=== PATIENT | male | born 1945 | race Caucasian/White ===

== ENCOUNTER 2023-03-01 12:00 | Inpatient (IN) ==
[2023-03-01] MEDS: Standard Conc; 4 MG in 250 mL for HYPOTENSION IV SCH ×3 (12:07→22:27)
[2023-03-01] MEDS ORDERED: NOREPINEPHRINE/D5W 4 MG/250 ML IV ONE (12:12)
[2023-03-01] MEDS ORDERED: fentaNYL citrate PF 100 MCG/2 ML VIAL ONE ×2 (12:24→12:31)
[2023-03-01] MEDS ORDERED: niCARdipine HCL INJ 2.5 MG/ML 10 ML AMP ONE (12:24)
[2023-03-01] MEDS ORDERED: HEPARIN (PORCINE) 1000 UNIT/ML 10 ML (CATH LAB USE ONLY) ONE (12:24)
[2023-03-01] MEDS ORDERED: MIDAZOLAM HCL 1 MG/ML 2ML VIAL ONE (12:24)
[2023-03-01] MEDS ORDERED: NITROGLYCERIN/D5W 100MCG/ML 20ML SYR ONE (12:25)
[2023-03-01] MEDS ORDERED: fentaNYL citrate PF 100 MCG/2 ML VIAL IV ONE (12:25)
[2023-03-01 12:29] LABS: iSTAT Creatinine 1.1 mg/dl (0.6-1.3); iSTAT Hemoglobin 16.3 g/dl (14.0-18.0); iSTAT Ionized Calcium 1.14 mmol/l (1.12-1.32); iSTAT Potassium 4.4 mmol/L (3.3-5.0)
[2023-03-01 12:58] LABS: Basophils # (auto) 0.09 K/uL (0.00-0.20); Basophils % (auto) 0.6 %; Eosinophils # (auto) 0.26 K/uL (0.00-0.50); Eosinophils % (auto) 1.8 %; Hematocrit (blood only) 48.6 % (42.0-52.0); Hemoglobin 15.3 g/dl (14.0-18.0); Immature Granulocytes # (auto) 0.53 K/uL (0.01-0.20); Immature Granulocytes % (auto) 3.6 %; Lymphocytes # (auto) 3.33 K/uL (1.20-3.40); Lymphocytes % (auto) 22.6 %; Mean Corpuscular Hemoglobin 29.8 pg (25.0-34.0); Mean Corpuscular Hgb Conc 31.5 g/dL (32.0-36.0); Mean Corpuscular Volume 94.6 fL (80.0-100.0); Mean Platelet Volume 10.6 fL (9.4-12.4); Monocytes # (auto) 0.75 K/uL (0.11-0.59); Monocytes % (auto) 5.1 %; Neutrophils % (auto) 66.3 %; Platelet Count 281 K/uL (130-400); RDW Coefficient of Variation 13.5 % (11.5-14.5); RDW Standard Deviation 46.9 fL (36.4-46.3); Red Blood Count 5.14 M/uL (4.70-6.10); White Blood Count 14.76 K/ul (4.8-10.8)
[2023-03-01] MEDS ORDERED: EPINEPHrine INJ 1 MG/ML AMP ONE ×2 (12:59→13:01)
[2023-03-01] MEDS ORDERED: Standard Conc; 4mg in 250mL IV SCH (13:00)
--- NOTE | 2023-03-01 13:03 | Emergency Department Note ---
Impression & Plan Cardiac arrest ED Provider Note HISTORY OF PRESENT ILLNESS: Patient is a 77-year-old male presenting as a postarrest. Patient reportedly was out shoveling snow for about 10 minutes when he came into the house and was talking to his and reports that he slumped over. She tried to sternal rub him and he was not responding so she called 911. Police arrived within 8 minutes of her call and gave the patient a shock as advised by their AED. On EMS arrival, the patient was noted to have a STEMI on their initial EKG. He required 2 doses of epi, 300 mg of IV amiodarone and additional shock prehospital. He was intubated without any medications. He reportedly continued to go into intermittent runs of V. tach. Patient has a history of diabetes. On my discussion with , she reports that the patient has been doing well recently. No complaints of chest pain prior to him slumping over. EMS has had ROSC for 15 minutes prior to arrival in the ER. ROS: as above PHYSICAL EXAM: Constitutional: Patient appears in no acute distress. HENT: Head: Normocephalic and atraumatic. Eyes: EOMI, PERRL Mouth/Throat: Mucous membranes moist. Neck: Trachea midline. Neck supple. Cardiovascular: RRR, No murmurs, rubs or gallops. Intact distal pulses. Pulmonary/Chest: ET tube in place. Patient is being bagged with bag valve mask. Saturations of 98%. Intact lung sounds bilaterally. Abdominal: Abdomen soft, no tenderness, rebound or guarding. Musculoskeletal: No edema, tenderness or deformity noted. Skin: Warm and dry. Neurological: Nonresponsive. MDM: - Vitals signs showed hypotension. - History obtained via EMS and patient's . Patient presents with post cardiac arrest. Patient was shoveling snow when he came inside and apparently slumped over per . He was delivered 2 shocks prehospital, 2 mg of IV epinephrine and 300 mg of IV amiodarone for his intermittent V. tach. He was noted to have a STEMI prehospital. EMS has had ROSC for 15 minutes - Chronic conditions affecting care: Type 2 diabetes - Differential diagnoses include, but are not limited to: ACS; intracranial hemorrhage; pneumothorax; dysrhythmia - Order placed for continuous cardiac monitoring. At this time, monitor showed rate of 72 bpm with normal sinus rhythm, per my interpretation. - External medical records reviewed. Patient was shocked twice, once by police department and once by EMS. He was given a total of 2 of epinephrine, 300 mg of amiodarone and was intubated. EMS has had ROSC for 15 minutes prior to arrival in the ER. - EKG interpreted by myself showed atrial fibrillation. Rate 79 bpm. Noted to have PVCs. QTc 362. - Patient was alerted as a code chill given his ROSC after cardiac arrest. - On arrival to the ER, the patient is being ventilated with [id number]. Unable to get a noninvasive blood pressure via automatic or manual detection. Patient was started on IV epinephrine for pressure support. - I initially placed a left femoral arterial line under ultrasound guidance. However, no tracing was able to be picked up on this line. The line was pulled and pressure was held for 20 minutes. I inserted a arterial line into the left radial artery with good waveform on the monitor. - Consulted arson investigator, Dr. Coffey, given patient's prehospital STEMI. He came and evaluated the patient and will take to the Golf Cart Mechanic. - Discussed case with [facility] hospitalist for admission post Golf Cart Mechanic - Discussed case with Dr. Gomez, food analyst, for admission to ICU post chemical lab technician. - Patient was transported to the Golf Cart Mechanic with an epi drip running for further assessment. Plan for admission to the ICU under the hospitalist service post cath. PROCEDURE: Arterial line. Indication: Frequent BP chest; IV pressor use Catheter type: Arrow Location: Left femoral (initially then removed); left radial Emergent consent implied, given patient's critically ill status. At this time, the risks of the procedure are less than the risks of NOT performing the procedure. A time out was taken and the correct patient and site identified. The patient's skin was prepped in the standard fashion with chlorhexidine and full sterile drapes applied. The proper landmarks were identified with ultrasound, and the needle was inserted through the skin in the standard fashion. The needle was carefully advanced into blood vessel lumen under ultrasound guidance. The guidewire was placed uneventfully. The catheter was placed. It was sutured into position. There is initially good blood return from the line. However, when nursing attach the left femoral arterial line to there is set up there was no waveform noted and blood could not be drawn from the line anymore. The left femoral arterial line was withdrawn and pressure was held on the site for 20 minutes. A second arrow catheter was placed in the left radial artery successfully with good blood draw and good waveform on the monitor. The patient tolerated the procedure well. I have personally spent 43 minutes of critical care time in the direct management of this patient. This includes bedside care, interpretation of diagnostic studies, and testing, discussion with consultants, patient, and family members, and other required patient management activities. This 43 minutes is in excess of all separately billable procedures. ASSESSMENT AND PLAN: Diagnosis: Cardiac arrest Plan: To Golf Cart Mechanic Past Med/Surg History Medical History (Updated 03/01/23 @ 13:03 by Olimpia Bazan MD) Hypercholesterolemia Diabetes mellitus Family History (Updated 11/19/20 @ 08:27 by Maddison Tierney RN) Father Cancer Mother Cerebral hemorrhage Social History (Updated 11/19/20 @ 08:32 by Maddison Tierney RN) Smoking Status: Unknown if ever smoked Hx Alcohol Use: Yes Alcohol type: beer Alcohol Intake Frequency Comment: 1 beer daily Hx Substance Use: No Preferred Language: Mexican Communication Ability: Effective Visual Impairment: Limited Hearing Ability: Hard of Hearing Fiber Optic Central Office Installer Required: No Beliefs That Will Affect Care: None marital status: Current Living Situation: Spouse current occupational status: retired How many Children do You have: 2 How many Children do You have Comment: 1 daughter local. Family able to assist with care as needed. Feels Safe at Home: Yes Diet: diabetic Diet Comment: stated trying to watch sugar intake, newly dx diabetic during the past year weight has: remained stable Physical Activity Frequency: 5-6 Times per Week Physical Activity Frequency Comment: walks daily about 1 mile or so Seatbelt Use: always Do you think of yourself as: straight/heterosexual Gender Identity: Male Allergies Allergies Allergy/AdvReac Type Severity Reaction Status Date / Time No Known Allergies Allergy Verified 12/18/20 10:29 Home Meds Home Medications Medication Instructions Recorded Confirmed metformin 500 mg tablet 1,500 mg PO DAILY 11/19/20 12/18/20 atorvastatin 10 mg tablet 10 mg PO DAILY 11/27/20 12/18/20 Results & Data (ED) Vital Signs Vital Signs - 24 hr 03/01/23 12:04 03/01/23 12:05 03/01/23 12:07 Pulse Rate 77 71 77 Pulse Rate from SpO2 Sensor 80 Respiratory Rate 25 H 22 Blood Pressure 113/86 Blood Pressure Mean 95 Pulse Oximetry 99 96 Oxygen Delivery Method Mechanical Vent Sepsis Recent Fever Within 48 Hours No Sepsis New/Unexplained Change in Mental Status No Sepsis Action Taken by Nursing No Action Required Arterial Pulse Rate End-Tidal CO2 03/01/23 12:10 03/01/23 12:11 03/01/23 12:11 Pulse Rate 78 73 Pulse Rate from SpO2 Sensor 77 Respiratory Rate 23 21 Blood Pressure 113/86 Blood Pressure Mean 98 Pulse Oximetry 97 Oxygen Delivery Method Mechanical Vent Sepsis Recent Fever Within 48 Hours Sepsis New/Unexplained Change in Mental Status Sepsis Action Taken by Nursing Arterial Pulse Rate End-Tidal CO2 03/01/23 12:15 03/01/23 12:15 03/01/23 12:20 Pulse Rate 70 Pulse Rate from SpO2 Sensor 67 Respiratory Rate 26 H Blood Pressure 181/123 H 190/123 H Blood Pressure Mean 151 147 Pulse Oximetry 95 Oxygen Delivery Method Mechanical Vent Sepsis Recent Fever Within 48 Hours Sepsis New/Unexplained Change in Mental Status Sepsis Action Taken by Nursing Arterial Pulse Rate 0 L End-Tidal CO2 27 03/01/23 12:20 03/01/23 12:25 03/01/23 12:25 Pulse Rate 67 68 Pulse Rate from SpO2 Sensor 75 77 Respiratory Rate 28 H 29 H Blood Pressure 164/132 H Blood Pressure Mean 143 Pulse Oximetry 94 95 Oxygen Delivery Method Mechanical Vent Mechanical Vent Sepsis Recent Fever Within 48 Hours Sepsis New/Unexplained Change in Mental Status Sepsis Action Taken by Nursing Arterial Pulse Rate End-Tidal CO2 30 31 03/01/23 12:30 03/01/23 12:31 03/01/23 12:31 Pulse Rate 74 72 Pulse Rate from SpO2 Sensor 76 78 Respiratory Rate 28 H 29 H Blood Pressure 182/116 H Blood Pressure Mean 140 Pulse Oximetry 95 96 Oxygen Delivery Method Mechanical Vent Mechanical Vent Sepsis Recent Fever Within 48 Hours Sepsis New/Unexplained Change in Mental Status Sepsis Action Taken by Nursing Arterial Pulse Rate 76 End-Tidal CO2 33 35 03/01/23 12:35 03/01/23 12:35 03/01/23 12:40 Pulse Rate 81 Pulse Rate from SpO2 Sensor 80 Respiratory Rate 20 Blood Pressure 187/119 H 180/115 H Blood Pressure Mean 144 143 Pulse Oximetry 95 Oxygen Delivery Method Mechanical Vent Sepsis Recent Fever Within 48 Hours Sepsis New/Unexplained Change in Mental Status Sepsis Action Taken by Nursing Arterial Pulse Rate End-Tidal CO2 39 03/01/23 12:40 Pulse Rate 72 Pulse Rate from SpO2 Sensor 75 Respiratory Rate 21 Blood Pressure Blood Pressure Mean Pulse Oximetry 94 Oxygen Delivery Method Mechanical Vent Sepsis Recent Fever Within 48 Hours Sepsis New/Unexplained Change in Mental Status Sepsis Action Taken by Nursing Arterial Pulse Rate 72 End-Tidal CO2 37 Laboratory Data 03/01/23 12:13 03/01/23 12:13 Lab Results 03/01/23 03/01/23 Range/Units 12:11 12:13 WBC 14.76 H (4.8-10.8) K/ul RBC 5.14 (4.70-6.10) M/uL Hgb 15.3 (14.0-18.0) g/dl POC Hgb 16.3 (14.0-18.0) g/dl Hct 48.6 (42.0-52.0) % POC Hct 48 (42-52) % MCV 94.6 (80.0-100.0) fL MCH 29.8 (25.0-34.0) pg MCHC 31.5 L (32.0-36.0) g/dL RDW Std Deviation 46.9 H (36.4-46.3) fL RDW Coeff of West 13.5 (11.5-14.5) % Plt Count 281 (130-400) K/uL MPV 10.6 (9.4-12.4) fL Immature Gran % (Auto) 3.6 % Neut % (Auto) 66.3 % Lymph % (Auto) 22.6 % Mills % (Auto) 5.1 % Eos % (Auto) 1.8 % Baso % (Auto) 0.6 % Neut # (Auto) 9.80 H (1.40-6.50) K/uL Lymph # (Auto) 3.33 (1.20-3.40) K/uL Mills # (Auto) 0.75 H (0.11-0.59) K/uL Eos # (Auto) 0.26 (0.00-0.50) K/uL Baso # (Auto) 0.09 (0.00-0.20) K/uL Immature Gran # (Auto) 0.53 H (0.01-0.20) K/uL POC Sodium 138 (135-144) mmol/L POC Potassium 4.4 (3.3-5.0) mmol/L POC Chloride 102 (101-112) mmol/L POC Total CO2 22 L (24-31) mmol/L POC Anion Gap 20.0 (16-25) mmol/L POC BUN 20 H (7-18) mg/dl POC Creatinine 1.1 (0.6-1.3) mg/dl POC Glucose (other) 317 H (70-99) mg/dl POC Ioniz Calcium Elbert 1.14 (1.12-1.32) mmol/l Administered Medications Fentanyl Citrate (Fentanyl Citrate Pf 100 Mcg/2 Ml Vial) 100 mcg IV ONE ONE Stop: 03/01/23 12:26 Last Admin: 03/01/23 12:55 Dose: Not Given Documented By: KRISTOPHER Discontinued Medications Fentanyl Citrate (Fentanyl Citrate Pf 100 Mcg/2 Ml Vial) Confirm Administered Dose 100 mcg .ROUTE .STK-MED ONE Stop: 03/01/23 12:25 Last Admin: 03/01/23 12:25 Dose: 100 mcg Documented By: KRISTOPHER Discharge Plan Visit Data Chief Complaint: Cardiac Arrest/CPR ED Provider: Olimpia Bazan Discharge Problem: Cardiac arrest
[2023-03-01 13:16] LABS: Albumin Globulin Ratio 1.3 (0.9-2); Albumin Level 3.8 gm/dl (3.4-5.0); BUN Creatinine Ratio 15.8 (10-20); Bilirubin,Total 1.2 mg/dl (0.2-1.0); Calcium 8.8 mg/dl (8.6-10.3); Creatinine Clr Calc Pharmacy 71.7 ml/min; Est GFR (African American) 67.2 ml/min; Globulin 2.9 gm/dl (2.5-4.0); Potassium 4.3 mmol/L (3.5-5.1); Total Protein 6.7 gm/dl (6.0-8.3)
[2023-03-01 13:18] LABS: Troponin I High Sensitivity 141.6 pg/ml (0-20)
[2023-03-01] MEDS ORDERED: EPTIFIBATIDE 0.75 MG/ML 75MG VIAL (CATH LAB USE ONLY) IV ONE (13:21)
[2023-03-01] MEDS ORDERED: EPTIFIBATIDE 2 MG/ML 10 ML VIAL (CATH LAB USE ONLY) IV ONE ×2 (13:21→13:29)
[2023-03-01] MEDS ORDERED: ADENOSINE IV SOLN 3 MG/ML 2 ML VIAL IV ONE (13:27)
[2023-03-01] MEDS ORDERED: HEPARIN 25000 UNIT/500 ML D5W IV ONE (14:05)
[2023-03-01] MEDS ORDERED: ATROPINE SULFATE 0.1 MG/ML 10ML SYR IV PRN (14:21)
[2023-03-01] MEDS ORDERED: EPTIFIBATIDE BOLUS/DRIP IV STA (14:21)
[2023-03-01] MEDS ORDERED: ONDANSETRON INJ 2 MG/ML 2 ML VIAL IV PRN (14:21)
[2023-03-01] MEDS ORDERED: CLOPIDOGREL BISULFATE 300 MG TAB PO STA (14:29)
[2023-03-01] MEDS ORDERED: STAT IV Infusion **Titration per Protocol STA ×2 (14:50→18:01)
[2023-03-01] MEDS ORDERED: fentaNYL BOLUS from BAG IV PRN (14:50)
[2023-03-01] MEDS ORDERED: busPIRone 15 MG TAB NG PRN (14:50)
[2023-03-01] MEDS ORDERED: PROPOFOL BOLUS FROM BAG IV PRN (14:50)
[2023-03-01] MEDS ORDERED: MIDAZOLAM HCL 1 MG/ML 2ML VIAL IV STA (14:50)
[2023-03-01] MEDS ORDERED: MIDAZOLAM BOLUS FROM BAG IV PRN (14:50)
[2023-03-01] MEDS ORDERED: MEPERIDINE HCL 25 MG/ML CARP/VIAL IV PRN (14:50)
[2023-03-01] MEDS ORDERED: INSULIN PROTOCOL GOAL RANGE ONE (14:50)
--- OUTSIDE RECORDS SUMMARY | 2023-03-01 14:50 | External Medical Summary | Summary of Care ---
Author Name Unknown Organization [facility] Address [address] [place] [address] Phone [phone] Care Team Providers Care Rubber Goods Assembler Name Role Phone Daisy Lu MD Primary Care Provider Reason for Visit * Reason Onset Date Comments Health Maintenance 01/12/2023 Encounter Details Date Type Department Care Team (Late st Contact Info) Description 01/12/2023 Telephone Family Practice [facility] [address] [place] [phone] Daisy Lu MD [address] [place] [phone] Health Maintenance Allergies No known active allergiesdocumented as of this encounter (statuses as of 01/12/2023) Medications Medication Sig Dispensed Refills Start Date End Date Status Ascorbic Acid 1000 MG Oral Tablet Take by mouth. 0 Active Lycopene Oral Capsule Take by mouth. 0 Active Resveratrol 250 MG Oral Capsule Take by mouth. 0 Active Folic Acid 800 MCG Oral Tablet Take 1 Tablet by mouth in the morning. 0 Active DHEA 50 50 MG Oral Capsule (Prasterone (DHEA)) Take by mouth. 0 Active Vitamin A 2400 MCG (8000 UT) Oral Capsule Take by mouth. 0 Active Vitamin B-12 500 MCG Oral Tablet (vitamin B-12) Take 1 Tablet by mouth in the morning. 0 Active Loratadine 10 MG Oral Capsule Take 1 Capsule by mouth in the morning. 0 Active Phenylephrine HCl 10 MG Oral Tablet Take by mouth. 0 Active OneTouch Ultra In Vitro Strip (Glucose Blood)Indications:Ty pe 2 diabetes mellitus with hemoglobin A1c goal of less than 7.0% (HCC) Use to check blood sugar once daily 100 Strip 5 06/18/2022 Active inTarvoTouch Delica Lancets 33GIndications:Type 2 diabetes mellitus with hemoglobin A1c goal of less than 7.0% (HCC) Check blood sugars once a day 100 Each 5 06/22/2022 Active inTarvoTouch Ultra 2 w/Device KitIndications:Type 2 diabetes mellitus with hemoglobin A1c goal of less than 7.0% (HCC) Use to direct blood sugars once daily. E11.9 1 Each 0 06/24/2022 Active Atorvastatin Calcium 40 MG Oral Tablet (Lipitor)Indications :Type 2 diabetes mellitus with hemoglobin A1c goal of less than 7.0% (HCC) TAKE 1 TABLET BY MOUTH ONCE DAILY IN THE MORNING 90 Tablet 3 08/11/2022 Active metFORMIN HCl ER 500 MG Oral Tablet Extended Release 24 Hour (Glucophage XR)Indications:Type 2 diabetes mellitus with hemoglobin A1c goal of less than 7.0% (HCC) TAKE 4 TABLETS BY MOUTH IN THE MORNING 120 Tablet 5 10/04/2022 Active Glimepiride 2 MG Oral Tablet (Amaryl)Indications: Type 2 diabetes mellitus with hemoglobin A1c goal of less than 7.5% (HCC) Take 1 Tablet by mouth daily before breakfast. 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 Vitamin B 12 deficiency 09/05/2020 Overview: Level 375 at urgent care 06/2020. Started 500mcg/day. Type 2 diabetes mellitus wit h hemoglobin A1c goal of less than 7.0% 09/03/2020 Overview: ophtho 08/2020, no retinopathy, f/u 1yr. documented as of this encounter (statuses as of 01/12/2023) Resolved Problems Problem Noted Date Diagnosed Date Resolved Date Amputation of right great toe 07/01/2021 06/17/2022 Diabetes with skin ulcer 03/16/2021 documented as of this encounter (statuses as of 01/12/2023) Immunizations Name Administration Dates Next Due COVID-19 mRNA, LNP-s, No Pre serve, 2-Dose Series (Moderna) 12/25/2020 Covid-19 Ad26, Single Dose (Glenis/J&J) 021 Covid-19, Mrna, Lnp-s, Pf, B ivalent, 30 Mcg, IM, 12 yrs and above ([employer]) 03/11/2022 Zoster Vaccine Recombinant (Shingrix) 08/25/2022 ,05/31/2022 documented as of this encounter Social History Tobacco Use Types Packs/Day Years Used Date Smoking Tobacco: Never Smokeless Tobacco: Never Alcohol Use Standard Drinks/Week Comments Yes 7 (1 standard drink = 0.6 oz pur e alcohol) AUDIT-C Answer Date Recorded Q1: How often do you have a drink containing alcohol? 4 or more times a week 07/23/2020 Q2: How many drinks containi ng alcohol do you have on a typical day when you are drinking? 1 or 2 Q3: How often do you have si x or more drinks on one occasion? Never 07/23/2020 PHQ-2 Answer Date Recorded PHQ Adult Total Score 0 12/20/2022 Hunger Vital Sign Answer Date Recorded Within the past 12 months, y ou worried that your food would run out before you got the money to buy more. Never true 12/21/19 23 Within the past 12 months, t he food you bought just didn't last and you didn't have money to get more. Never true 12/20/2022 Sex and Gender Information Value Date Recorded Sex Assigned at Male 07/23/2020 1:55 PM EDT Gender Identity Male 07/23/2020 1:55 PM EDT Sexual Orientation Straight 07/23/2020 1: 55 PM EDT Job Start Date Occupation Industry Not on file Not on file Not on file documented as of this encounter Miscellaneous Notes * Telephone Encounter - Cha Ramsey LPN - 01/12/2023 2:05 PM EST Care Gaps Comprehensive Care Outreach Last Office/Telemedicine Visit: 12/20/2022 (in office), Visit date not found (telemedicine) Next Office Visit: 06/24/2023 Hemoglobin AIC Results: Lab Results Component Value Date/Time HEMOGLOBIN A1C - [facility] 6.2 (H) 12/16/2022 10:47 AM HEMOGLOBIN A1C - [facility] 7.7 (H) 06/21/2022 12:03 PM HEMOGLOBIN A1C - [facility] 8.3 (H) 04/21/2022 09:02 AM Reviewed Health Maintenance below: Health Maintenance Topic Date Due Pneumococcal Vaccine: 65+ Years (1 - PCV) Never done Hepatitis C Screening Never done DTaP,Tdap,and Td Vaccines (1 - Tdap) Never done Hepatitis B (1 of 3 - Risk 3-dose series) Never done Influenza Vaccine (FLU shot) (1) Never done COVID-19 Vaccine () 10/22/2022 Diabetic Foot Exam 02/17/2023 Albumin/Creatinine Ratio 04/22/2023 GFR 04/22/2023 HbA1c 06/17/2023 Labs/urine already ordered Awv my g Care Gap Outreach Action Taken: Myportal message sent documented in this encounter Plan of Treatment Upcoming Encounters Date Type Department Care Team (Late st Contact Info) Description 06/24/2023 10:00 AM EDT Office Visit Family Practice [facility] [address] [phone] Daisy Lu MD [address] [phone] 09/08/2023 3:15 PM EDT Office Visit Ophthalmology, [facility] [address] [address] Nilesh Sutton, DO [address] [facility] [place] [address] Health Maintenance Due Date Last Done Comments Pneumococcal Vaccine: 65+ Years (1 - PCV) 12/27/1951 Hepatitis C Screening 12/27/1963 DTaP,Tdap,and Td Vaccines (1 - Tdap) 1964 Hepatitis B (1 of 3 - Risk 3-dose series) 2005 COVID-19 Vaccine (4 - season) 2022 03/11/2022, 12/25/2020, 06/01/2020 Influenza Vaccine (FLU shot) (#1) 2022 Diabetic Foot Exam 02/17/2023 02/17/2022, 10/17/2020 Albumin/Creatinine Ratio 04/22/2023 04/21/2022, 08/21 GFR 04/22/2023 04/21/2022, 05/07/2021 HbA1c 06/17/2023 12/16/2022, 05/0 02/2022, 04/21/2022, Additional history exists Diabetic Eye Exam 09/03/2023 09/02/2022, , 09/02/2022, Additional history exists Depression Screening 12/21/2023 12/20/2022 Zoster Vaccines Completed 08/25/2022, 05/31/2022 GARDASIL-HPV IMMUNIZATION SERIES Aged Out No longer eligible based on patient's age to complete this topic MENINGOCOCCAL (MENACTRA/MENVEO) Aged Out No longer eligible based on patient's age to complete this topic documented as of this encounter Medical Devices Not on filedocumented as of this encounter Care Teams Rubber Goods Assembler Relationship Specialty Start Date End Date Daisy Lu MD [address] [facility] [place] [phone] PCP - General Internal Medicine 07/23/20 documented as of this encounter
--- OUTSIDE RECORDS SUMMARY | 2023-03-01 14:50 | External Medical Summary | Summary of Care ---
Author Name Unknown Organization [facility] Address [address] [place] [address] Phone [phone] Care Team Providers Care Housekeeper And Laundry Assistant Name Role Phone Daisy Lu MD Primary Care Provider Encounter Details Date Type Department Care Team (Late st Contact Info) Description 02/22/2023 Orders Only Outcomes Research Department [address] [place] [address] Dali Cabrera CHRA [employer] Other*[id number] Allergies No known active allergiesdocumented as of this encounter (statuses as of 02/22/2023) Medications Medication Sig Dispensed Refills Start Date [...] hemoglobin A1c goal of less than 7.0% ([facility]) Use to check blood sugar once daily 100 Strip 5 06/18/2022 Active OneTouch Delica Lancets 33GIndications:Type 2 diabetes mellitus with hemoglobin A1c goal of less than 7.0% (HCC) Check blood sugars once a day 100 Each 5 06/22/2022 Active OneTouch Ultra 2 w/Device KitIndications:Type 2 diabetes mellitus [...] as of this encounter (statuses as of 02/22/2023) Active Problems Problem Noted Date Diagnosed Date [...] as of this encounter (statuses as of 02/22/2023) Resolved Problems Problem Noted Date Diagnosed Date Resolved Date Amputation of right great toe 07/01/2021 06/17/2022 Diabetes with skin ulcer 03/16/2021 documented as of this encounter (statuses as of 02/22/2023) Immunizations Name Administration Dates Next Due COVID-19 mRNA, LNP-s, No Pre serve, 2-Dose Series (Moderna) 12/25/2020 Covid-19 Ad26, Single Dose (Glenis/J&J) 021 Covid-19, Mrna, Lnp-s, Pf, B ivalent, 30 Mcg, IM, 12 yrs and above ([employer]) 03/11/2022 Zoster Vaccine Recombinant (Shingrix) 08/25/2022 ,05/31/2022 [...] on file documented as of this encounter Plan of Treatment Upcoming Encounters Date Type Department Care Team (Late st Contact Info) Description 06/24/2023 10:00 AM EDT Office Visit Family Practice [facility] [address] [address] Daisy Lu MD [address] [place] [address] 09/08/2023 3:15 PM EDT Office Visit Ophthalmology, [facility] [address] [place] [address] Nilesh Sutton, DO [address] [facility] [place] [address] Scheduled Orders Name Type Priority Associated Diagnoses Orde r Schedule MYCODE SUBSEQUENT ADULT Lab Routine MyCode Research Other*[id number] Every 6 Months for 2 Occurrences starting 02/22/2023 until 03/13/2024 Health Maintenance Due Date Last Done Comments Pneumococcal Vaccine: 65+ Years (1 - PCV) 12/27/1951 Hepatitis C Screening 12/27/1963 DTaP,Tdap,and Td Vaccines (1 - Tdap) 1964 Hepatitis B (1 of 3 - Risk 3-dose series) 2005 COVID-19 Vaccine (4 - 2022- season) 2022 03/11/2022, 12/25/2020, 06/01/2020 Influenza Vaccine (FLU shot) (#1) 2022 Diabetic Foot Exam 02/17/2023 02/17/2022, 10/17/2020 Albumin/Creatinine Ratio 04/22/2023 04/21/2022, 0707/2020 GFR 04/22/2023 04/21/2022, 05/07/2021 HbA1c 06/17/2023 12/16/2022, [...] Not on filedocumented as of this encounter Visit Diagnoses Diagnosis MyCode Research Other*[id number] documented in this encounter Care Teams Housekeeper And Laundry Assistant Relationship Specialty Start Date End Date Daisy Lu MD [address] [place] [address] PCP - General Internal Medicine 07/23/20 documented as of this encounter
--- OUTSIDE RECORDS SUMMARY | 2023-03-01 14:51 | External Medical Summary | Summary of Care ---
Author Name Unknown Organization [facility] Address [address] [place] [address] Phone [phone] Care Team Providers Care Tire Fixer Name Role Phone Daisy Lu MD Primary Care Provider Reason for Visit * Reason Comments Follow Up Doing well, no lucy rns Encounter Details Date Type Department Care Team (Latest Contact Info) Description 12/20/2022 10:40 AM EDT Office Visit Family Practice [facility] [address] [facility] [address] Daisy Lu MD [address] [facility] [id number] Type 2 diabetes mellitus with hemoglobin A1c goal of less than 7.5% (HCC)*; 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 0 Active Lycopene Oral Capsule Take by mouth. 0 Active Resveratrol 250 MG Oral Capsule Take by mouth. 0 Activ e Folic Acid 800 MCG Oral Tablet Take [...] MG Oral Tablet Take by mouth. 0 Act galilea GimmieTouch Ultra In Vitro Strip (Glucose Blood)Indications :Type 2 diabetes mellitus with hemoglobin A1c goal of less than 7.0% (HCC) Use to check blood sugar once daily 100 Strip 5 06/18/2022 Active GimmieTouch Delica Lancets 33GIndications:Ty pe 2 diabetes mellitus with hemoglobin A1c goal of less than 7.0% (HCC) Check blood sugars once a day 100 Each 5 06/22/2022 Active GimmieTouch Ultra 2 w/Device KitIndications:Ty pe 2 diabetes mellitus with hemoglobin A1c goal of less than 7.0% (HCC) Use to direct blood sugars once daily. E11.9 1 Each 0 06/24/2022 Active Atorvastatin Calcium 40 MG Oral Tablet (Lipitor)Indicati ons:Type 2 diabetes mellitus with hemoglobin A1c goal of less than 7.0% (HCC) TAKE 1 TABLET BY MOUTH ONCE DAILY IN THE MORNING 90 Tablet 3 08/11/2022 Active metFORMIN HCl ER 500 MG Oral Tablet Extended Release 24 Hour (Glucophage XR)Indications:Ty pe 2 diabetes mellitus with hemoglobin A1c goal of less than 7.0% (HCC) TAKE 4 TABLETS BY MOUTH IN THE MORNING 120 Tablet 5 10/04/2022 Active Glimepiride 2 MG Oral Tablet (Amaryl)Indicatio ns:Type 2 diabetes mellitus with hemoglobin A1c goal of less than 7.5% (HCC) Take 1 Tablet by mouth daily before breakfast. 90 Tablet 3 12/20/2022 Active Align Oral Tablet Chewable Take by mouth. 0 12/20/2022 Discontinu ed (Medication List Clean Up) Glimepiride 4 MG Oral Tablet (Amaryl) Take 1 Tablet by mouth daily before breakfast. 90 Tablet 3 07/26/2022 12/20/2022 Discontinued (Refill) documented as of this encounter (statuses as of 12/20/2022) Active Problems Problem Noted Date Diagnosed Date [...] as of this encounter (statuses as of 12/20/2022) Resolved Problems Problem Noted Date Diagnosed Date Resolved Date Amputation of right great toe 07/01/2021 06/17/2022 Diabetes with skin ulcer 03/16/2021 documented as of this encounter (statuses as of 12/20/2022) Immunizations Name Administration Dates Next Due COVID-19 mRNA, LNP-s, No Pre serve, 2-Dose Series (Moderna) 12/25/2020 Covid-19 Ad26, Single Dose (Glenis/J&J) 021 Covid-19, Mrna, Lnp-s, Pf, B ivalent, 30 Mcg, IM, 12 yrs and above ([employer]) 03/11/2022 Zoster Vaccine Recombinant (Shingrix) 08/25/2022 ,05/31/2022 [...] Date Recorded PHQ Adult Total Score 0 12/29/2020 Hunger Vital Sign Answer Date Recorded Within the past 12 months, y ou worried that your food would run out before you got the money to buy more. Never true 11/07/19 22 Within the past 12 months, t he food you bought just didn't last and you didn't have money to get more. Never true 11/06/2021 Sex and Gender Information Value Date Recorded Sex Assigned at Male 07/23/2020 1:55 PM EDT Gender Identity Male 07/23/2020 1:55 PM EDT Sexual Orientation Straight 07/23/2020 1: 55 PM EDT Job Start Date Occupation Industry Not on file Not on file Not on file documented as of this encounter Last Filed Vital Signs Vital Sign Reading Time Taken Comments Blood Pressure 100/72 12/20/2022 10:31 AM EDT Pulse 89 12/20/2022 10:31 AM EDT Temperature 36.3 C (97.3 F) 12/20/2022 10:31 AM E DT Respiratory Rate 20 12/20/2022 10:31 AM EDT Oxygen Saturation 96% 12/20/2022 10:31 AM EDT Inhaled Oxygen Concentration - - Weight 117.5 kg (259 lb) 12/20/2022 10:31 AM EDT Height 180.3 cm (5' 11") 12/20/2022 10:31 AM EDT Body Mass Index 36.12 12/20/2022 10:31 AM EDT documented in this encounter Patient Instructions * Patient Instructions* Daisy Lu MD - 12/20/2022 11:01 AM EDT Next Steps: -- decrease glimepiride to 2mg daily. We are hoping to lower the risk of low blood sugars. -- if you have a stomach bug or aren't eating, don't take the glimepiride. -- if you feel shaky, sweaty check blood sugar -- ride exercise bike 10-15 min/day -- drink 64 ounces of fluid a day - this will help you Poop -- okay to keep taking Agnieszka since your blood pressure hasn't gone up -- consider influenza vaccine. documented in this encounter Progress Notes * Daisy Lu MD - 12/20/2022 10:43 AM EDT Images from the original note were not included. History of Present Illness Daryl Abebe is a 76 year old male that presents for Follow Up (Doing well, no concerns) Diabetes - hemoglobin A1c 6.2. Metformin 1999. MTM started glimepiride in July, f/u PRN. Has had 2 episodes of shakiness and feeling weak, blood sugar was in the 70s. Not checking blood sugar regularly. Mild diabetic changes right eye, just saw Ophthalmology. Plan for 1 year follow-up. Neuropathy wakes at night if doesn't apply lidocaine cream to feet. Spends most of the day sitting in his chair. Taking Agnieszka for constipation, has multiple herbal compounds, including licorice root extract and inulin. Blood pressure has not increased. Lipids - saw MTM, f/u PRN. Atorvastatin 40 B12 deficiency - oral replacement Declines influenza vaccine. Did get shingles vaccine. medication and allergy list reviewed Past medical history and problem list reviewed Physical Exam Vitals: 12/20/22 1031 Temp: 36.3 C (97.3 F) Pulse: 89 Resp: 20 SpO2: 96% BP: 100/72 BMI: 36.14 BP Readings from Last 3 Encounters: 12/20/22 100/72 06/17/22 122/78 11/06/21 124/60 Wt Readings from Last 3 Encounters: 12/20/22 117.5 kg (259 lb) 06/17/22 111.7 kg (246 lb 3.2 oz) 11/06/21 112.4 kg (247 lb 12.8 oz) Physical Exam Vitals and nursing note reviewed. Constitutional: General: He is not in acute distress. Appearance: Normal appearance. He is not ill-appearing. HENT: Head: Normocephalic and atraumatic. Eyes: Pupils: Pupils are equal, round, and reactive to light. Neck: Thyroid: No thyroid mass, thyromegaly or thyroid tenderness. Cardiovascular: Rate and Rhythm: Normal rate and regular rhythm. Heart sounds: No murmur heard. Pulmonary: Effort: Pulmonary effort is normal. Breath sounds: Normal breath sounds. Musculoskeletal: Right lower leg: Edema present. Left lower leg: Edema present. Comments: Trace bilateral lower extremity edema. Warm and well-perfused Decreased monofilament sensation to both big toes and forefoot Intact skin Lymphadenopathy: Cervical: No cervical adenopathy. Skin: General: Skin is warm and dry. Neurological: Mental Status: He is alert. I have reviewed the following results: CMP, Lipid Panel, TSH, CBC, and B12 Assessment and Plan Type 2 diabetes mellitus with hemoglobin A1c goal of less than 7.5% (HCC) Will dial back glimepiride to avoid risk of hypoglycemia. Does not need an A1c of 6.1, especially at his age. Patient Instructions Next Steps: -- decrease glimepiride to 2mg daily. We are hoping to lower the risk of low blood sugars. -- if you have a stomach bug or aren't eating, don't take the glimepiride. -- if you feel shaky, sweaty check blood sugar -- ride exercise bike 10-15 min/day -- drink 64 ounces of fluid a day - this will help you Poop -- okay to keep taking Agnieszka since your blood pressure hasn't gone up -- consider influenza vaccine. - Glimepiride 2 MG Oral Tablet (Amaryl); Take 1 Tablet by mouth daily before breakfast. 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 | For: Labs 2-5 Days Before Next Visit, Return with Aly Time: I spent a total of 30-39 minutes (exact time 39 mins) on the date of service in preparation, delivery, and documentation of the care provided to Daryl Abebe excluding any time spent in the performance of separately billed services. documented in this encounter Plan of Treatment Upcoming Encounters Date Type Department Care Team (Late st Contact Info) Description 06/24/2023 10:00 AM EDT Office Visit [facility] [address] [place] [address] Daisy Lu MD [address] [place] [id number] 09/08/2023 3:15 PM EDT Office Visit Ophthalmology, [facility] [address] [place] [address] Nilesh Sutton DO [address] [facility] [address] [place] [address] Scheduled Orders Name Type Priority Associated Diagnoses Orde r Schedule VITAMIN B12 Lab Routine Vitamin B 12 deficiency Expected: 06/20/2023 (Approximate), Expires: 12/21/2023 HEMOGLOBIN A1C Lab Routine Type 2 diabetes mellitus with hemoglobin A1c goal of less than 7.5% (HCC) Expected: 06/20/2023 (Approximate), Expires: 01/21/2024 BASIC METABOLIC PANEL Lab Routine Type 2 diabetes mellitus with hemoglobin A1c goal of less than 7.5% (HCC) Expected: 06/20/2023 (Approximate), Expires: 12/21/2023 ALBUMIN / CREATININE RATIO, URINE Lab Routine Type 2 diabetes mellitus with hemoglobin A1c goal of less than 7.5% (HCC) Expected: 06/20/2023 (Approximate), Expires: 12/21/2023 LIPID PANEL WITH DIRECT LDL IF TG IS HIGH Lab Routine Dyslipidemia, goal LDL below 100 Expected: 12/20/2022, Expires: 12/21/2023 Health Maintenance Due Date Last Done Comments Pneumococcal Vaccine: 65+ Years (1 - PCV) 12/27/1951 Hepatitis C Screening 12/27/1963 DTaP,Tdap,and Td Vaccines (1 - Tdap) 1964 Hepatitis B (1 of 3 - Risk 3-dose series) 2005 Depression Screening 12/29/2021 12/29/2020 COVID-19 Vaccine (4 - 2022-24 season) 2022 03/11/2022, 12/25/2020, 06/01/2020 Influenza Vaccine (FLU shot) (#1) 2022 Diabetic Foot Exam 02/17/2023 02/17/2022, 10/17/2020 Albumin/Creatinine Ratio 04/22/2023 04/21/2022, 0707/2020 GFR 04/22/2023 04/21/2022, 05/07/2021 HbA1c 06/17/2023 12/16/2022, 05/0 02/2022, 04/21/2022, Additional history exists Diabetic Eye Exam 09/03/2023 09/02/2022, , 09/02/2022, Additional history exists Zoster Vaccines Completed 08/25/2022, 05/31/2022 GARDASIL-HPV IMMUNIZATION SERIES Aged Out No longer eligible based on patient's age to complete this topic MENINGOCOCCAL (MENACTRA/MENVEO) Aged Out No longer eligible based on patient's age to complete this topic documented as of this encounter Medical Devices Not on filedocumented as of this encounter Visit Diagnoses Diagnosis Type 2 diabetes mellitus with hemoglobin A1c goal of less than 7.5% (HCC)- Primary 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
--- OUTSIDE RECORDS SUMMARY | 2023-03-01 14:51 | External Medical Summary | Summary of Care ---
Author Name Unknown Organization [facility] Address [address] [place] [address] Phone [phone] Care Team Providers Care Investment Counselor Name Role Phone Daisy Lu MD Primary Care Provider Reason for Visit * Reason Comments Outpatient Testing Encounter Details Date Type Department Care Team (Late st Contact Info) Description 12/16/2022 11:10 AM EDT Laboratory Laboratory, [facility] [address] [place] [id number] [facility] [address] [place], [place] [id number] Type 2 diabetes mellitus with hemoglobin A1c goal of less than 7.0% ([facility]) Allergies No known active allergiesdocumented as of this encounter (statuses as of 12/16/2022) Medications Medication Sig Dispensed Refills Start Date [...] Oral Tablet Take by mouth. 0 Active Align Oral Tablet Chewable Take by mouth. 0 Active OneTouch Ultra [...] daily. E11.9 1 Each 0 06/24/2022 Active Glimepiride 4 MG Oral Tablet (Amaryl) Take 1 Tablet by mouth daily before breakfast. 90 Tablet 3 07/26/2022 Active Atorvastatin Calcium 40 MG Oral Tablet [...] THE MORNING 120 Tablet 5 10/04/2022 Active documented as of this encounter (statuses as of 12/16/2022) Active Problems Problem Noted Date Diagnosed Date History of amputation of hallux 06/17/2022 Dyslipidemia, goal LDL below 100 10/17/2020 Overview: High-dose statin started 08/2020. Vitamin B 12 deficiency 09/05/2020 Overview: Level 375 at urgent care 06/2020. Started 500mcg/day. Type 2 diabetes mellitus wit h hemoglobin A1c goal of less than 7.0% 09/03/2020 Overview: ophtho 08/2020, no retinopathy, f/u 1yr. documented as of this encounter (statuses as of 12/16/2022) Resolved Problems Problem Noted Date Diagnosed Date Resolved Date Amputation of right great toe 07/01/2021 06/17/2022 Diabetes with skin ulcer 03/16/2021 documented as of this encounter (statuses as of 12/16/2022) Immunizations Name Administration Dates Next Due COVID-19 mRNA, LNP-s, No Pre serve, 2-Dose Series (Moderna) 12/25/2020 Covid-19 Ad26, Single Dose (Glenis/J&J) 021 Covid-19, Mrna, Lnp-s, Pf, B ivalent, 30 Mcg, IM, 12 yrs and above ([employer]) 03/11/2022 Zoster Vaccine Recombinant (Shingrix) 05/31/2022 documented as of this encounter Social History [...] Care Team (Late st Contact Info) Description 12/20/2022 10:40 AM EDT Office Visit Family [address] [place] [address] Daisy Lu MD [address] [place] [address] 09/08/2023 3:15 PM EDT Office Visit Ophthalmology, [facility] [address] [place] [address] Nilesh Sutton, DO [address] [place] [address] Pending Results Name Type Priority Associated Diagnoses Date /Time HEMOGLOBIN A1C Lab Routine Type 2 diabetes mellitus with hemoglobin A1c goal of less than 7.0% ([facility]) 12/16/2022 10:47 AM EDT Health Maintenance Due Date Last Done Comments Pneumococcal Vaccine: 65+ Years (1 - PCV) 12/27/1951 Hepatitis C Screening 12/27/1963 DTaP,Tdap,and Td Vaccines (1 - Tdap) 1964 Hepatitis B (1 of 3 - Risk 3-dose series) 2005 Depression Screening 12/29/2021 12/29/2020 Zoster Vaccines (2 of 2) 07/26/2022 05/31/2022 COVID-19 Vaccine ( - season) 2022 03/11/2022, 12/25/2020, 06/01/2020 Influenza Vaccine (FLU shot) (#1) 2022 HbA1c 12/22/2022 06/21/2022, 03/0 02/2022, 11/06/2021, Additional history exists Diabetic Foot Exam 02/17/2023 02/17/2022, 10/17/2020 Albumin/Creatinine Ratio 04/22/2023 04/21/2022, 08/21 GFR 04/22/2023 04/21/2022, 05/07/2021 DIABETES-EYE EXAM 09/03/2023 09/02/2022, , 09/02/2022, Additional history exists GARDASIL-HPV IMMUNIZATION SERIES Aged Out No longer eligible based on patient's age to complete this topic MENINGOCOCCAL (MENACTRA/MENVEO) Aged Out No longer eligible based on patient's age to complete this topic documented as of this encounter Medical Devices Not on filedocumented as of this encounter Visit Diagnoses Diagnosis Type 2 diabetes mellitus with hemoglobin A1c goal of less than 7.0% ([facility]) documented in this encounter Care Teams Investment Counselor Relationship Specialty Start Date End Date Daisy Lu MD [address] [place] [address] PCP - General Internal Medicine 07/23/20 documented as of this encounter
--- OUTSIDE RECORDS SUMMARY | 2023-03-01 14:51 | External Medical Summary | Summary of Care ---
Author Name Unknown Organization [facility] Address [address] [place] [address] Phone [phone] Care Team Providers Care Rheumatology Nurse Name Role Phone Daisy uL MD Primary Care Provider Reason for Visit * Reason Comments eRx-Medication Refill Encounter Details Date Type Department Care Team Description 10/03/2022 Refill Family Practice [facility] [address] [place] [address] Daisy Lu MD [address] [place] [id number] Type 2 diabetes mellitus with hemoglobin A1c goal of less than 7.0% ([facility]) Allergies No known active allergiesdocumented as of this encounter (statuses as of 10/04/2022) Medications Medication Sig Dispensed Refills Start Date [...] Active OneTouch Ultra In Vitro Strip (Glucose Blood)Indications :Type 2 diabetes mellitus with hemoglobin A1c goal of less than 7.0% (HCC) Use to check blood sugar once daily 100 Strip 5 06/18/2022 Active OneTouch Delica Lancets 33GIndications:Ty pe 2 diabetes mellitus with hemoglobin A1c goal of less than 7.0% (HCC) Check blood sugars once a day 100 Each 5 06/22/2022 Active OneTouch Ultra 2 w/Device KitIndications:Ty pe 2 diabetes [...] THE MORNING 120 Tablet 5 10/04/2022 Active metFORMIN HCl ER 500 MG Oral Tablet Extended Release 24 Hour (Glucophage XR)Indications:Ty pe 2 diabetes mellitus with hemoglobin A1c goal of less than 7.0% (HCC) TAKE 4 TABLETS BY MOUTH IN THE MORNING 120 Tablet 5 04/26/2022 10/04/2022 Discontinued documented as of this encounter (statuses as of 10/04/2022) Active Problems Problem Noted Date History of amputation of hallux 06/18/19 23 Dyslipidemia, goal LDL below 100 021 Overview: High-dose statin started 08/2020. Vitamin B 12 deficiency 09/05/2020 Overview: Level 375 at urgent care 06/2020. Started 500mcg/day. Type 2 diabetes mellitus with hemoglobin A1c goal of less than 7.0% 09/03/2020 Overview: ophtho 08/2020, no retinopathy, f/u 1yr. documented as of this encounter (statuses as of 10/04/2022) Resolved Problems Problem Noted Date Resolved Date Amputation of right great toe 07/01/2021 Diabetes with skin ulcer 03/16/2021 023 documented as of this encounter (statuses as of 10/04/2022) Immunizations Name Administration Dates Next Due COVID-19 mRNA, LNP-s, No Pre serve, 2-Dose Series (Moderna) 12/25/2020 Covid-19 Ad26, Single Dose (Glenis/J&J) 021 Covid-19, Mrna, Lnp-s, Pf, B ivalent, 30 Mcg, IM, 12 yrs and above (MST) 03/11/2022 Zoster Vaccine Recombinant (Shingrix) 05/31/2022 documented as of this encounter Social History Tobacco Use Types Packs/Day Years Used Date Smoking Tobacco: Never Smokeless Tobacco: Never Alcohol Use Standard Drinks/Week Comments Yes 7 (1 standard drink = 0.6 oz pur e alcohol) Alcohol Habits Answer Date Recorded How often do you have a drin k containing alcohol? 4 or more times a week 07/23/2020 How many drinks containing a lcohol do you have on a typical day when you are drinking? 1 or 2 07/23/2020 How often do you have six or more drinks on one occasion? Never 07/23/2020 Food Insecurity Answer Date Recorded Within the past 12 months, y ou worried that your food would run out before you got money to buy more. Never true 11/06/2021 Within the past 12 months, t he food you bought just didn't last and you didn't have money to get more. Never true 11/06/2021 Sex Assigned at Date Recorded Male 07/23/2020 1:55 PM E DT Job Start Date Occupation Industry Not on file Not on file Not on file documented as of this encounter Miscellaneous Notes * Telephone Encounter - Olimpia Prather, [facility] - 10/04/2022 11:16 AM EDTSigned Prescriptions: Disp Refills metFORMIN HCl ER 500 MG Oral Tablet Extend*120 Ta*5 Sig: TAKE 4 TABLETS BY MOUTH IN THE MORNINGAuthorizing Provider: DAISY LUOrdering User: OLIMPIA PRATHER documented in this encounter Plan of Treatment Upcoming Encounters Date Type Specialty Care Team Description 12/20/2022 Office Visit Family Medicine Daisy Lu MD [address] [place] [address] 09/08/2023 Office Visit Ophthalmology Nilesh Sutton DO [address] [place] [address] Health Maintenance Due Date Last Done Comments Pneumococcal Vaccine: 65+ Years (1 - PCV) 12/27/1951 Hepatitis C Screening 12/27/1963 DTaP,Tdap,and Td Vaccines (1 - Tdap) 1964 Depression Screening, Annual for Pts 12 and Over 12/29/2021 12/29/2020 Zoster Vaccines (2 of 2) 07/26/2022 05/31/2022 Influenza Vaccine (FLU shot) (#1) 2022 HbA1c 12/22/2022 06/21/2022, 03/0 02/2022, 11/06/2021, Additional history exists DIABETES-FOOT EXAM 02/17/2023 02/17/2022, 10/17/2020 Albumin/Creatinine Ratio 04/22/2023 04/21/2022, 08/21 GFR 04/22/2023 04/21/2022, 05/07/2021 DIABETES-EYE EXAM 09/03/2023 09/02/2022, , 09/02/2022, Additional history exists COVID-19 Vaccine Completed 03/11/2022, 05/2020, 06/01/2020 GARDASIL-HPV IMMUNIZATION SERIES Aged Out No longer eligible based on patient's age to complete this topic Hepatitis B Aged Out No longer eligi ble based on patient's age to complete this topic MENINGOCOCCAL (MENACTRA/MENVEO) Aged Out No longer eligible based on patient's age to complete this topic documented as of this encounter Medical Devices Not on filedocumented as of this encounter Visit Diagnoses Diagnosis Type 2 diabetes mellitus with hemoglobin A1c goal of less than 7.0% (HCC) documented in this encounter Care Teams Rheumatology Nurse Relationship Specialty Start Date End Date Daisy Lu MD [address] [place] [address] PCP - General Internal Medicine 07/23/20 documented as of this encounter
--- OUTSIDE RECORDS SUMMARY | 2023-03-01 14:51 | External Medical Summary ---
Author Name Unknown Address Unknown Organization [id number]:[facility] [place] [address] [place] [address] Laboratory Report Ordering Provider Test Date Status OSCARJAIMES 12/16/2022 10:47:20 Final Observation Date Value Abnormality Reference (Units ) Status HbA1C 12/16/2022 10:47:20 6.2 Above high normal 4. 0-5.6 (%) Final The use of HbA1c to monitor glycemic status is based on normal hemoglobin and HbA composition. This test should not be used in patients with abnormal hemoglobin that affects the half life of the red blood cell or the in vivo glycation rates. Glucose, estimated average 12/16/2022 10:47:20 131 Above high normal <126 (mg/dL) Mil llanos Performing Location [facility] [place] - [address] [place] [address]
[2023-03-01] MEDS ORDERED: fentaNYL citrate 2,500 MCG/250 ML BAG IV SCH (15:00)
[2023-03-01] MEDS ORDERED: LACTATED RINGER'S 1,000 ML IV SCH ×2 (15:00)
[2023-03-01] MEDS ORDERED: MIDAZOLAM HCL 125 MG/250 ML BAG IV SCH (15:00)
--- NOTE | 2023-03-01 15:28 | XRay Report ---
SINGLE VIEW CHEST CLINICAL HISTORY: Respiratory failure. Intubation. FINDINGS: An AP, portable, supine chest radiograph is obtained. No prior studies are available for co mparison at the time of dictation. The examination is degraded by portable technique and patient rota tion. An endotracheal tube has been placed. The tip projects approximately 1.5 cm above the noemi. T he heart is enlarged. There is pulmonary vascular congestion. Bilateral airspace opacities are noted. No large pleural effusion or pneumothorax is seen. The skeletal structures are osteopenic. The bony thorax is grossly intact. IMPRESSION: 1. An endotracheal tube has been placed as above. 2. Cardiomegaly with pulmonary vascular congestion. 3. Bilateral airspace opacities could represent pulmonary edema and/or an infectious/inflammatory pne umonitis. Correlate clinically. Radiographic follow-up to resolution is recommended ACT 112: Negative or not required by law. Electronically signed by: Jefe Guerrero M.D. 03/01/2023 3:27 PM
--- NOTE | 2023-03-01 15:30 | Pre Anesthesia Assessment ---
Date of Service March 01, 2023 Pre Sedation Assessment Vital Signs Pulse Resp BP Pulse Ox O2 Del Method 03/01/23 12:40 72 21 94 Mechanical Vent 03/01/23 12:40 180/115 H 03/01/23 12:35 81 20 95 Mechanical Vent 03/01/23 12:35 187/119 H 03/01/23 12:31 72 29 H 96 Mechanical Vent 03/01/23 12:31 182/116 H 03/01/23 12:30 74 28 H 95 Mechanical Vent 03/01/23 12:25 68 29 H 95 Mechanical Vent 03/01/23 12:25 164/132 H 03/01/23 12:20 67 28 H 94 Mechanical Vent 03/01/23 12:20 190/123 H 03/01/23 12:15 70 26 H 95 Mechanical Vent 03/01/23 12:15 181/123 H 03/01/23 12:11 73 21 03/01/23 12:11 113/86 03/01/23 12:10 78 23 97 Mechanical Vent 03/01/23 12:07 77 03/01/23 12:05 71 22 113/86 96 03/01/23 12:04 77 25 H 99 Mechanical Vent Cardiovascular Additional Comments: Hypertensive on epinephrine Respiratory Additional Comments: Intubated and ventilated Pre-Sedation Airway Assessment Smoking Status: Unknown if ever smoked Notes The planned sedation has been discussed with the patient. Informed Consent was obtained. I have identified the patient, determined the appropriateness of se dation and have assessed the patient immediately prior to the procedure. All medicine(s) and interventions are by my order.
[2023-03-01] MEDS ORDERED: HEPARIN SOD (PORCINE) 1000 UNIT/ML IV ONE (15:33)
--- NOTE | 2023-03-01 15:34 | Post Anesthesia Assessment ---
Date of Service March 01, 2023 Post Sedation Assessment Vital Signs Pulse Resp BP Pulse Ox O2 Del Method 03/01/23 12:40 72 21 94 Mechanical Vent 03/01/23 12:40 180/115 H 03/01/23 12:35 81 20 95 Mechanical Vent 03/01/23 12:35 187/119 H 03/01/23 12:31 72 29 H 96 Mechanical Vent 03/01/23 12:31 182/116 H 03/01/23 12:30 74 28 H 95 Mechanical Vent 03/01/23 12:25 68 29 H 95 Mechanical Vent 03/01/23 12:25 164/132 H 03/01/23 12:20 67 28 H 94 Mechanical Vent 03/01/23 12:20 190/123 H 03/01/23 12:15 70 26 H 95 Mechanical Vent 03/01/23 12:15 181/123 H 03/01/23 12:11 73 21 03/01/23 12:11 113/86 03/01/23 12:10 78 23 97 Mechanical Vent 03/01/23 12:07 77 03/01/23 12:05 71 22 113/86 96 03/01/23 12:04 77 25 H 99 Mechanical Vent Recovery Score Activity: Moves 0 extremities Respiration: Apneic/Obstructed Airway (Intubated) Circulation: +/-20% PreAnes Value Consciousness: Nonresponsive (Sedated) Oxygen Saturation: <90% w/ supp O2 (Intubated) Discharge Sedation Level of Care: Higher Level of Care (Transfer to ICU) Post Sedation Plan On clinical assessment, the patient appears to have tolerated the sedation without complications. Patient is recovering as anticipated. Patient will continue to be monitored by nursing and may be discharged when sedation discharge criteria are met per below protocol. Upon Completions of procedure up to 15 minutes continue every 5 minute vital signs and the P.A.R. score; then discharge to a Phase I or Fast Track to Phase II per the following guidelines: * Discharge Patient to appropriate Phase II area if PAR is 8 or greater or return to pre- procedure baseline. The post - procedure orders will be as directed. * If PAR score is less than 8 or not return to pre-procedure baseline then patient will follow Phase I monitoring till PAR is reached for Phase II. The Phase I may be done in procedure room or may call to secure a Phase I area. * If naloxone or flumazenil are used for reversal, hold in Phase I for continued monitoring from when last reversal dose was given for a minimum of 60 minutes or longer pending the nurse and/or physician discretion of patient condition before discharge to Phase II. Please call the Sedation Physician to re-evaluate and complete post-note for discharge to Phase II area. Do NOT discharge from procedure sedation or Phase 1 until post- sedation evaluation note is complete by procedure /sedation MD Sedation Discharge Instructions to be given to the patient at discharge to home. [facility] [place] Procedure Codes (Charges) Indication for Procedure Indication for procedure: Cardiac arrest Sedation/Anesthesia Procedure 1: Sedation/Anesthesia: 68822 Mod Sedation by the same physician;Init15 Min Child Age 5 & Up (Start 1255) Total Sedation Time (minutes): 103 Procedure 2: Sedation/Anesthesia: 23002 Mod Sedation by the same physician; Ea Add [id number] Minutes (end 1438) Total Sedation Time (minutes): 103
[2023-03-01] MEDS ORDERED: OPTIRAY 350 ONE (15:36)
--- NOTE | 2023-03-01 15:49 | Critical Care Consultation ---
Date of Consultation March 01, 2023 Assessment & Plan (1) Cardiac arrest: (2) Acidosis due to secondary diabetes: (3) Acute hypoxemic respiratory failure: (4) Myocardial infarction acute: (5) Morbid obesity with BMI of 40.0-44.9, adult: (6) Anoxic brain injury: Plan Impression: 77-year-old male with morbid obesity diabetes and potential neurocognitive decline admitted with out of hospital cardiac arrest. He underwent cardiac catheterization with stents to the LAD x 2 but has significant multivessel disease. He remains hypotensive and chest x-ray demonstrates cardiomegaly with diffuse pulmonary edema. He is already demonstrating signs of potential anoxic brain injury with myoclonic jerking and a unfavorable neurological exam. Recommendations: 1. Neurologic: Findings suggestive of early anoxic injury. Discussed with the patient . While we could pursue therapeutic hypothermia, the fact that the patient is already exhibited significant bleeding diathesis associated with his antiplatelet medications and anoxic injury, I do not think the risk of hypoth ermia would support its use at this point in time. Will use the cooling catheter to maintain euthermia. Will obtain stat CT of the head to evaluate for changes. If these are identified at this early on, consideration for early transition to palliative care might be appropriate. Given the myoclonic jerks, will request EEG. These are not typically responsive to antiepileptic medication but the patient could be suffering from nonepileptic status 2. Cardiovascular: Acute myocardial infarction with cardiac arrest. The patient has multivessel disease. Continue management per cardiology. Await echocardiogram and will trend troponins. If bleeding diathesis becomes problematic, may need to adjust antiplatelet and anticoagulation. Wean epinephrine as tolerated. 3. Pulmonary: Severe hypoxemic respiratory failure. Will increase PEEP and try and maintain peak airway pressure and plateau pressures below 25 although these may not be accurately measured given the patient's body habitus. Will allow for permissive hypercapnia if needed although given his potential brain injury will try and maintain pH within the 7.35-7.45 range. Consider diuresis as tolerated. 4. ID: At risk for aspiration pneumonia. Hold on antibiotics for now but should the patient demonstrate purulent secretions or hemodynamic instability above his current state, would have a low threshold for starting antibiotics. 5. Endocrine: Will initiate insulin infusion for glycemic control. Check hemoglobin A1c 6. GI: N.p.o. for now. Will trend LFTs. PPI will be initiated. 7. Renal: At risk for acute kidney injury. Will follow and replace electrolytes as needed. 8. Heme-onc: Leukocytosis likely reactive but will continue to trend. Bleeding from multiple sites will be monitored. Continue antiplatelet agents per cardiology for now. The patient's overall prognosis is severely guarded. I an extensive discussion with the . Her 2 daughters are currently out of the state 1 residing in [place] and when traveling to [place]. Her sister is en route to be with her but is several hours away. She has multiple supportive friends locally. She states that her has had significant physical and mental decline over the last 3 years. He was frustrated at the state of his current care. He is definitely not interested in pursuing life-sustaining therapies if he were not able to achieve a quality of life similar to her better than he came into the hospital with. She understands the severity of his illness. We discussed additional CPR and she states that if the patient were to suffer an additional cardiac arrest neither the patient nor she would want to pursue additional resuscitative efforts. They understand that this would potentially result in the patient's demise. She would like to see how he responds to the above intervention but may be open to withdrawal of life-sustaining therapies should the patient clinically decline. A total of 79 minutes in critical care time was spent in evaluation management and stabilization of this patient up to this point. He is on life support History of Present Illness Attending Physician: Sebastian Coffey MD, PhD History of Present Illness Asked by cardiology and hospitalist to assist in evaluation management this patient status post cardiac arrest. History is obtained from discussion with the ER/cardiology team as well as with his and reviewed the electronic medical record. The patient is a 77-year-old morbidly obese male with type 2 diabetes who was shoveling snow today. He came in and sat in his chair. His then noticed that he was unresponsive. She felt for a pulse and noted no pulse. She activated EMS. She states the patient was too big to get out of the chair and put on the floor so she attempted CPR while he was in the chair. She reports that EMS responded to the scene within 10 minutes. Patient was defibrillated with an AED. He required epinephrine amiodarone and an additional shock and was intubated in the field without any medications. In the field he had an arterial line placed and an attempt at a femoral arterial line which was unsuccessful. He was taken urgently to the [facility]. He had multivessel disease noted. He underwent 2 stents to the LAD. The circumflex was also occluded and the right coronary artery also was diffusely diseased. The patient required epinephrine throughout the case. He only received 75 mcg of fentanyl and 2 mg of Versed for the procedure. He is brought to the ICU. He was assessed on arrival. He is demonstrating myoclonic jerking consistent with probable anoxic brain injury. No corneal reflexes were identified. Does not appear that he received atropine. His pupils are minimally reactive and small. He has not had imaging of the head performed yet. According to his , the patient has had significant decline in his functional status over the last 3 years since he was diagnosed with diabetes. She is also noted significant decline in his neurological function. Patient is a retired teacher and always had a fairly astute mental acumen but over the last several years she was wondering about the possibility of him developing dementia. He does not appear to have ever been assessed. The patient is exhibiting bleeding from multiple sites in association with his antiplatelet agents. Allergies Allergy/AdvReac Type Severity Reaction Status Date / Time No Known Allergies Allergy Verified 12/18/20 10:29 Home Medications Medication Instructions Recorded Confirmed Type atorvastatin 40 mg tablet 40 mg PO QAM 03/01/23 03/01/23 History glimepiride 2 mg tablet 2 mg PO QAM 03/01/23 03/01/23 History metformin 500 mg tablet,extended 2,000 mg PO QAM 03/01/23 03/01/23 History release 24 hr Patient History Medical History (Updated 03/01/23 @ 15:44 by Jarred Gomez MD) Hypercholesterolemia Diabetes mellitus Family History (Updated 11/19/20 @ 08:27 by Maddison Tierney RN) Father Cancer Mother Cerebral hemorrhage Social History (Updated 11/19/20 @ 08:32 by Maddison Tierney RN) Smoking Status: Unknown if ever smoked Hx Alcohol Use: Yes Alcohol type: beer Alcohol Intake Frequency Comment: 1 beer daily Hx Substance Use: No Preferred Language: Luxembourgish Communication Ability: Effective Visual Impairment: Limited Hearing Ability: Hard of Hearing [employer] Operator Required: No Beliefs That Will Affect Care: None marital status: Current Living Situation: Spouse current occupational status: retired How many Children do You have: 2 How many Children do You have Comment: 1 daughter local. Family able to assist with care as needed. Feels Safe at Home: Yes Diet: diabetic Diet Comment: stated trying to watch sugar intake, newly dx diabetic during the past year weight has: remained stable Physical Activity Frequency: 5-6 Times per Week Physical Activity Frequency Comment: walks daily about 1 mile or so Seatbelt Use: always Do you think of yourself as: straight/heterosexual Gender Identity: Male Review of Systems Review of Systems: Unobtainable due to endotracheal tube Physical Exam Constitutional: + morbidly obese and + mechanically vent ilated Bleeding from the nares ears and mouth. Neck: trachea midline, no thyromegaly Respiratory: no labored breathing Auscultation: + crackles and + rhonchi Intubated, mechanically ventilated Cardiovascular: RRR, no murmur, no edema Gastrointestinal (Abdomen): Obese. Musculoskeletal: Extremities: extremities normal to inspection Skin: no rashes, warm and dry Neurologic: No corneal reflexes. Negative or oculocephalics. Cold calorics not performed. No withdrawal to painful stimulus all 4 extremities. No cough or gag with manipulation of the endotracheal tube Lymphatic: no cervical lymphadenopathy Results & Data Results & Data Vital Signs (Past 12 Hours) Vital Signs Pulse Resp BP Pulse Ox O2 Del Method 03/01/23 12:40 72 21 94 Mechanical Vent 03/01/23 12:40 180/115 H 03/01/23 12:35 81 20 95 Mechanical Vent 03/01/23 12:35 187/119 H 03/01/23 12:31 72 29 H 96 Mechanical Vent 03/01/23 12:31 182/116 H 03/01/23 12:30 74 28 H 95 Mechanical Vent 03/01/23 12:25 68 29 H 95 Mechanical Vent 03/01/23 12:25 164/132 H 03/01/23 12:20 67 28 H 94 Mechanical Vent 03/01/23 12:20 190/123 H 03/01/23 12:15 70 26 H 95 Mechanical Vent 03/01/23 12:15 181/123 H 03/01/23 12:11 73 21 03/01/23 12:11 113/86 03/01/23 12:10 78 23 97 Mechanical Vent 03/01/23 12:07 77 03/01/23 12:05 71 22 113/86 96 03/01/23 12:04 77 25 H 99 Mechanical Vent Critical Care Results & Data Vital Signs (Past 12 Hours) Vital Signs Pulse Resp BP Pulse Ox O2 Del Method 03/01/23 12:40 72 21 94 Mechanical Vent 03/01/23 12:40 180/115 H 03/01/23 12:35 81 20 95 Mechanical Vent 03/01/23 12:35 187/119 H 03/01/23 12:31 72 29 H 96 Mechanical Vent 03/01/23 12:31 182/116 H 03/01/23 12:30 74 28 H 95 Mechanical Vent 03/01/23 12:25 68 29 H 95 Mechanical Vent 03/01/23 12:25 164/132 H 03/01/23 12:20 67 28 H 94 Mechanical Vent 03/01/23 12:20 190/123 H 03/01/23 12:15 70 26 H 95 Mechanical Vent 03/01/23 12:15 181/123 H 03/01/23 12:11 73 21 03/01/23 12:11 113/86 03/01/23 12:10 78 23 97 Mechanical Vent 03/01/23 12:07 77 03/01/23 12:05 71 22 113/86 96 03/01/23 12:04 77 25 H 99 Mechanical Vent Lab & Micro Results (Past 24 Hours) RBC 5.14 M/uL (4.70-6.10) 03/01/23 WBC 14.76 K/ul (4.8-10.8) H 03/01/23 Hgb 15.3 g/dl (14.0-18.0) 03/01/23 Hct 48.6 % (42.0-52.0) 03/01/23 MCV 94.6 fL (80.0-100.0) 03/01/23 MCH 29.8 pg (25.0-34.0) 03/01/23 MCHC 31.5 g/dL (32.0-36.0) L 03/01/23 RDW Standard Deviation 46.9 fL (36.4-46.3) H 03/01/23 RDW Coefficient of Variation 13.5 % (11.5-14.5) 03/01/23 Plt Count 281 K/uL (130-400) 03/01/23 MPV 10.6 fL (9.4-12.4) 03/01/23 Neutrophils (%) (Auto) 66.3 % 03/01/23 Lymphocytes (%) (Auto) 22.6 % 03/01/23 Monocytes # (Auto) 0.75 K/uL (0.11-0.59) H 03/01/23 Eosinophils # (Auto) 0.26 K/uL (0.00-0.50) 03/01/23 Immature Granulocyte % (Auto) 3.6 % 03/01/23 Neutrophils # (Auto) 9.80 K/uL (1.40-6.50) H 03/01/23 Lymphocytes # (Auto) 3.33 K/uL (1.20-3.40) 03/01/23 Monocytes # (Auto) 0.75 K/uL (0.11-0.59) H 03/01/23 Eosinophils # (Auto) 0.26 K/uL (0.00-0.50) 03/01/23 Basophils # (Auto) 0.09 K/uL (0.00-0.20) 03/01/23 Immature Granulocyte # (Auto) 0.53 K/uL (0.01-0.20) H 03/01 Na 137 mmol/L (136-145) 03/01/23 K 4.3 mmol/L (3.5-5.1) 03/01/23 Cl 102 mmol/L (98-107) 03/01/23 CO2 20 mmol/L (21-32) L 03/01/23 Anion Gap 15 (3-11) H 03/01/23 BUN 19 mg/dl (6-23) 03/01/23 Creatinine 1.20 mg/dl (0.6-1.4) 03/01/23 Estimated GFR ( Amer) 67.2 ml/min 03/01/23 Estimated GFR (Non-Af Amer) 58.0 ml/min 03/01/23 BUN/Creatinine Ratio 15.8 (10-20) 03/01/23 Glu 324 mg/dl (70-99(Fasting)) H* 03/01/23 Ca 8.8 mg/dl (8.6-10.3) 03/01/23 Total Bilirubin 1.2 mg/dl (0.2-1.0) H 03/01/23 AST 32 U/L (13-39) 03/01/23 ALT 24 U/L (7-52) 03/01/23 Alkaline Phosphatase 65 U/L (34-104) 03/01/23 TP 6.7 gm/dl (6.0-8.3) 03/01/23 Albumin 3.8 gm/dl (3.4-5.0) 03/01/23 Globulin 2.9 gm/dl (2.5-4.0) 03/01/23 Albumin/Globulin Ratio 1.3 (0.9-2) 03/01/23 Calcium Level 8.8 mg/dl (8.6-10.3) 03/01/23 12:13 Diagnostic Findings (Past 24 Hours) Chest X-Ray 03/01/23 14:50 SINGLE VIEW CHEST CLINICAL HISTORY: Respiratory failure. Intubation. FINDINGS: An AP, portable, supine chest radiograph is obtained. No prior studies are available for comparison at the time of dictation. The examination is degraded by portable technique and patient rotation. An endotracheal tube has been placed. The tip projects approximately 1.5 cm above the noemi. The heart is enlarged. There is pulmonary vascular congestion. Bilateral airspace opacities are noted. No large pleural effusion or pneumothorax is seen. The skeletal structures are osteopenic. The bony thorax is grossly intact. IMPRESSION: 1. An endotracheal tube has been placed as above. 2. Cardiomegaly with pulmonary vascular congestion. 3. Bilateral airspace opacities could represent pulmonary edema and/or an infectious/inflammatory pneumonitis. Correlate clinically. Radiographic follow- up to resolution is recommended ACT 112: Negative or not required by law. Electronically signed by: Jefe Guerrero M.D. 03/01/2023 3:27 PM I & O Totals 24 Hours 02/28/23 03/01/23 03/02/23 06:59 06:59 06:59 Intake Total 72.349 / 72.349 Balance 72.349 / 72.349 Cumulative 03/01/23 11:49 thru 03/01/23 12:22 Intake Total 72.349 Balance 72.349 RT Ventilator Mngmt (Last Documented) Ventilator Ordered Settings Respiratory Rate 21 03/01/23 12:40 Ventilator - PT Measurements Respiratory Rate 21 End-Tidal CO2 37 Coding Level of Care Code 90945 CRITICAL CARE EA ADD 30M Diagnoses Cardiac arrest I46.9 Acidosis due to secondary diabetes E13.10 Acute hypoxemic respiratory failure J96.01 Myocardial infarction acute I21.9 Morbid obesity with BMI of 40.0-44.9, adult E66.01; Z68.41 Anoxic brain injury G93.1
[2023-03-01] MEDS: SODIUM CHLORIDE 0.9% 1,000 ML IV SCH (15:54)
[2023-03-01] MEDS: EPTIFIBATIDE 75 MG/100 ML VIAL IV SCH ×3 (15:54→23:01)
--- NOTE | 2023-03-01 15:57 | History & Physical Report ---
Date of Service March 01, 2023 Assessment & Plan (1) Myocardial infarction acute: (2) Cardiac arrest: (3) Anoxic brain injury: (4) Acute hypoxemic respiratory failure: (5) Acidosis due to secondary diabetes: (6) Hypercholesterolemia: (7) Diabetes mellitus: (8) Morbid obesity with BMI of 40.0-44.9, adult: Plan This is a 77-year-old male with PMH of type 2 diabetes, dyslipidemia, vitamin B2 deficiency and other medical problems listed below who presents from home as a post cardiac arrest via EMS intubated in the field. Acute ME, s/p MORRO x 2 to LAD Cardiac arrest with ROSC achieved in field Possible anoxic brain injury Became unresponsive 2/2 shoveling snow earlier today called EMS and police arrived within 8 minutes of patient being down. AED revealed vtach and patient received defibrillation with STEMI on initial EKG once EMS arrived In the field, he required 2 doses of epi, 300mg IV amiodarone and additional shock once arrived in ED. EMS has had ROSC for 15 minutes prior to arrival in the ER Went to microbiological lab technician upon arrival as a heart alert and 2 MORRO to LAD placed but significant multivessel disease noted Intermittent myoclonic jerks noted through catheterization procedure and in ICU - obtaining CT head No longer requiring pressors post-procedure Continue IV heparin drip Post-cath management per Dr. Coffey, critical care mgmt per Dr. Gomez Per chart review- extensive discussion took place between family and Dr. Gomez regarding goals of care - patient has some dementia with cognitive decline over the past few years and would feels he would not be interested in pursuing life- sustaining therapies if he were not able to achieve a quality of life similar to or better than he came into the hospital with - confirmed code status as a DNR/DNI DM II Hold home agents Per ICU glycemic pharmacist for mgmt HLD On atorvastatin 40mg per home meds DVT Ppx: Heparin drip Code status: DNR/DNI PCP: Aly Dispo: Admitted to ICU Patient seen in collaboration with Dr. Porras. Please see addendum. Admission and Anticipated Discharge Date Admission Date: March 01, 2023 History of Present Illness Chief Complaint: heart alert Primary Care Provider: Daisy Lu MD This is a 77-year-old male with PMH of type 2 diabetes, dyslipidemia, vitamin B2 deficiency and other medical problems listed below who presents from home as a post cardiac arrest via EMS intubated in the field. Was reportedly shoveling snow for 10 minutes prior to coming in from outside and slumping over and becoming unresponsive. called EMS and police arrived within 8 minutes of patient being down. AED revealed vtach and patient received defibrillation with STEMI on initial EKG once EMS arrived. In the field, he required 2 doses of epi, 300mg IV amiodarone and additional shock once arrived in ED. EMS has had ROSC for 15 minutes prior to arrival in the ER. Went to microbiological lab technician upon arrival as a heart alert and received 2 MORRO to LAD but significant multivessel disease noted. Evaluated in ICU following cardiac catheterization and is intubated with intermittent myoclonic jerks noted. ROS unobtainable due to reduced consciousness. Per discussion in the room, Dr. Gomez spoke extensively with who states patient has some dementia with cognitive decline over the past few years. Okay with current plan for CT head to look for potential anoxic brain injury but per their discussion, is not not interested in pursuing life- sustaining therapies if he were not able to achieve a quality of life similar to or better than he came into the hospital with. Allergies Allergy/AdvReac Type Severity Reaction Status Date / Time No Known Allergies Allergy Verified 12/18/20 10:29 Home Medications Medication Instructions Recorded Confirmed Type atorvastatin 40 mg tablet 40 mg PO QAM 03/01/23 03/01/23 History glimepiride 2 mg tablet 2 mg PO QAM 03/01/23 03/01/23 History metformin 500 mg tablet,extended 2,000 mg PO QAM 03/01/23 03/01/23 History release 24 hr Past Med/Surg History Medical History (Updated 03/01/23 @ 15:56 by Valeria Donovan PA-C) Hypercholesterolemia Diabetes mellitus Surgical History Amputation toe R toe, 05/21/2021 Family History Father Cancer Mother Cerebral hemorrhage Social History Smoking Status: Unknown if ever smoked Hx Alcohol Use: Yes Alcohol type: beer Alcohol Intake Frequency Comment: 1 beer daily Hx Substance Use: No Preferred Language: Qatari Communication Ability: Effective Visual Impairment: Limited Hearing Ability: Hard of Hearing Payroll Secretary Required: No Beliefs That Will Affect Care: None marital status: Current Living Situation: Spouse current occupational status: retired How many Children do You have: 2 How many Children do You have Comment: 1 daughter local. Family able to assist with care as needed. Feels Safe at Home: Yes Diet: diabetic Diet Comment: stated trying to watch sugar intake, newly dx diabetic during the past year weight has: remained stable Physical Activity Frequency: 5-6 Times per Week Physical Activity Frequency Comment: walks daily about 1 mile or so Seatbelt Use: always Do you think of yourself as: straight/heterosexual Gender Identity: Male Review of Systems Review of Systems: Unobtainable due to reduced consciousness Physical Exam Physical Exam: Please see Dr. Porras' addendum for physical exam. Results & Data Results & Data Vital Signs (Past 12 Hours) Vital Signs Pulse Resp BP Pulse Ox O2 Del Method 03/01/23 12:40 72 21 94 Mechanical Vent 03/01/23 12:40 180/115 H 03/01/23 12:35 81 20 95 Mechanical Vent 03/01/23 12:35 187/119 H 03/01/23 12:31 72 29 H 96 Mechanical Vent 03/01/23 12:31 182/116 H 03/01/23 12:30 74 28 H 95 Mechanical Vent 03/01/23 12:25 68 29 H 95 Mechanical Vent 03/01/23 12:25 164/132 H 03/01/23 12:20 67 28 H 94 Mechanical Vent 03/01/23 12:20 190/123 H 03/01/23 12:15 70 26 H 95 Mechanical Vent 03/01/23 12:15 181/123 H 03/01/23 12:11 73 21 03/01/23 12:11 113/86 03/01/23 12:10 78 23 97 Mechanical Vent 03/01/23 12:07 77 03/01/23 12:05 71 22 113/86 96 03/01/23 12:04 77 25 H 99 Mechanical Vent Laboratory Results Short CBC 03/01/23 Range/Units 12:13 WBC 14.76 H (4.8-10.8) K/ul Hgb 15.3 (14.0-18.0) g/dl Hct 48.6 (42.0-52.0) % Plt Count 281 (130-400) K/uL BMP 03/01/23 12:13 Sodium 137 Potassium 4.3 Chloride 102 Carbon Dioxide 20 L BUN 19 Creatinine 1.20 Glucose 324 H* Calcium 8.8 Liver Function 03/01/23 Range/Units 12:13 Total Bilirubin 1.2 H (0.2-1.0) mg/dl AST 32 (13-39) U/L ALT 24 (7-52) U/L Alkaline Phosphatase 65 (34-104) U/L Albumin 3.8 (3.4-5.0) gm/dl Diagnostic Findings Chest X-Ray 03/01/23 14:50 SINGLE VIEW CHEST CLINICAL HISTORY: Respiratory failure. Intubation. FINDINGS: An AP, portable, supine chest radiograph is obtained. No prior studies are available for comparison at the time of dictation. The examination is degraded by portable technique and patient rotation. An endotracheal tube has been placed. The tip projects approximately 1.5 cm above the noemi. The heart is enlarged. There is pulmonary vascular congestion. Bilateral airspace opacities are noted. No large pleural effusion or pneumothorax is seen. The skeletal structures are osteopenic. The bony thorax is grossly intact. IMPRESSION: 1. An endotracheal tube has been placed as above. 2. Cardiomegaly with pulmonary vascular congestion. 3. Bilateral airspace opacities could represent pulmonary edema and/or an infectious/inflammatory pneumonitis. Correlate clinically. Radiographic follow- up to resolution is recommended ACT 112: Negative or not required by law. Electronically signed by: Jefe Guerrero M.D. 03/01/2023 3:27 PM Supervising Physician Co-Signing Physician Notes I have seen and discussed the case with the collaborating ADÁN. I agree with the above H&P. I have reviewed and confirmed the patients medical history, the findings on physical examination, and the patients diagnosis and treatment plan with Zion MCCAIN and agree with the information documented. In short, Mr. Abebe is a 77 year old gentleman with DMTII, HLD, prior OM s/p right great hallux amputation who is admitted for post-arrest management. Patient with over 10minutes down prior to arrival at home after collapsing at home after shoveling snow. Reportedly runs of VTACH on scene, with 2 shocks, 2 rounds epi, and amio with in field intubation. Upon arrival to [facility], patient was brought to microbiological lab technician and found to have severe CAD s/p 2 MORRO. Cath findings also report diffuse disease, as well a notable chronic occlusion of RCA. Course complicated by myoclonic jerking. Physical Exam: General: intubated and sedated, occasionally myoclonic jerking of head/left extremity most notable on exam CV: tachycardic, difficult to appreciate 2/2 mechanical ventilation Resp: Mechanical breath sounds, vented GI: protuberant abdomen, soft MSK 2+ pitting edema of BLE Plan #Post arrest management #Severe obstructive CAD s/p 2 MORRO #Myoclonic activity, concern for anoxic injury -Management per ICU -Epi pressor support -Integrillin per cardiology -Heparin drip -Sedated with propofol, analgesia with fentanyl -Plavix, asa in am -Post arrest management per icu protocol -Course contingent on neuroprognostication Rest of plan as above
--- NOTE | 2023-03-01 16:03 | Cardiac Catheterization ---
ACC Data: Tower Operator Cardiac Status Clinical evaluation leadi ng to the procedure Cardiac arrest ST elevation [place] CAD Presenation: STEMI Anginal Classification: CCS IV Heart Failure: No Cardiogenic Shock within 24 Hours: Yes Cardiac Arrest within 24 Hours: Yes Imaging Studies Past 6 Months: No Stress Studies Past 6 Months: No STEMI OR Non-STEMI Symptom Onset Date: 03/01/23 Thrombolytics: No Coronary Anatomy Dominant: Co-Dominant Left Main (% Stenosis): Normal (Mild) LAD (% Stenosis): Proximal (Mild), Mid (Severe, 95 to 99% with thrombus) and Distal (Apical occlusion) D1 (% Stenosis): Ostial (99%) D2 (% Stenosis): Proximal (80%) Circumflex (% Stenosis): Proximal (100% (chronic total occlusion)) RCA (% Stenosis): Ostial (90%), Proximal (Diffuse mild to moderate), Mid (99%) and Distal (Diffuse up to 80%) R PDA (% Stenosis): Proximal (100% (chronic total occlusion)) R PL1 (% Stenosis): Normal Diagnostic Physicians Name: Sebastian Coffey MD, PhD Closure Device Percutaneous Entry Location: Radial Closure Device: Radial Band Recommendations: Medical Therapy and/or Counseling and PCI without planned CABG PCI Indication: PCI for STEMI - Unstable Reason For Delay in PCI:: Cardiac Arrest &/or Lesion Segment Name: Mid LAD Culprit Artery: Yes Stenosis Prior to Rx (%): 95 to 99% Chronic Total Occlusion: No Pre-Procedure FELICIANO Flow: 1 Previously Treated Lesion: No Lesion Complexity: Non-High/Non-C Lesion Length (mm): 15 Thrombus Present: Yes Bifurcation Lesion: Yes Guidewire Across Lesion: Yes Lesion #2 Segment Name: Apical LAD Culprit Artery: No Stenosis Prior to Rx (%): 99 to 100% Chronic Total Occlusion: Yes (Probable) Pre-Procedure FELICIANO Flow: 0 Previously Treated Lesion: No Lesion Complexity: Non-High/Non-C Lesion Length (mm): 12 Thrombus Present: No Guidewire Across Lesion: Yes Intraprocedure Events Significant Disection: No Perforation: No Cardiac Cath Procedure Full Procedure Date March 01, 2023 Pre-Procedure Diagnosis Pre-Procedure Diagnosis: STEMI AUC Score AUC Score: 09 Post-Procedure Diagnosis Post-Procedure Diagnosis: Severe CAD and Successful PCI Procedure(s) Performed Procedure(s) Performed: Coronary Angiography, Drug Eluting Stent, Ultrasound Guided Vascular Access and Procedure (Therapeutic hypothermia cooling catheter insertion) Loan Administrator Sebastian Coffey MD, PhD Estimated Blood Loss Estimated Blood Loss: 15 mL Medication(s) Medication(s): Adenosine, Epinephrine, Fentanyl, Heparin, Integrilin, Lidocaine 1%, Nicardipine, Nitroglycerin and Versed Summary of Findings Brief description: Patient was brought to the cardiac catheterization suite for emergent cardiac catheterization. He was intubated and sedated already from the emergency department. Had attempted left femoral access in the emergency department by the emergency medicine physician. Also had left radial arterial line in the emergency department. We provided additional sedation with Versed and fentanyl. Soft tissues of the right wrist were anesthetized using 2 mL of 1% Xylocaine. Right radial artery was accessed using a modified Seldinger technique and a 6 Surinamese radial artery glide sheath was placed. Patient was provided anticoagulation with IV heparin and antispasmodics including nicardipine and nitroglycerin. All catheters were advanced and exchanged over a 0.035 J-tip wire. Left coronary angiography was performed in orthogonal views with a 6 Surinamese EBU 3.5 guide catheter. We proceeded immediately to PCI. A BMW universal guidewire was advanced through the guide catheter. It was attempted to cross the occlusion in the circumflex. This was unsuccessful as the lesion appeared to be a chronic total occlusion. Attempts were also made with a run-through coronary guidewire. Decision was made to proceed with PCI of the LAD. The BMW universal guidewire was advanced and positioned distally in the LAD. Mid LAD lesion predilated using 3.0 x 12 mm trek balloon inflated at 8 archana followed by 14 archana, and a final inflation to 16 archana. Implantation of a 3.0 x 18 mm ana maria point drug-eluting stent at 20 archana. Postdilatation of the proximal and mid stent using 3.25 x 12 mm NC trek balloon at 14 archana mid, 16 archana proximal. Balloon was then removed. Patient was then provided intracoronary adenosine and intracoronary nitroglycerin. Decision was made to angioplasty the apical portion of the LAD. Predilatation using a 1.25 x 10 mm balloon inflated multiple times to 12 archana. No significant improvement in flow. A 2.25 x 12 mm drug-eluting stent was then deployed across the lesion at 12 archana. Stent balloon was removed. Final angiographic evaluation was performed. Coronary guidewire and guide catheter were removed from the patient. We next proceeded to complete the diagnostic coronary angiography. Right coronary angiography was performed with a 5 Surinamese JR4 diagnostic catheter in multiple views. Diagnostic catheters were removed. We next proceeded with therapeutic hypothermia cooling catheter insertion. Using the ultrasound for guidance (image saved), the right common femoral vein was accessed and a guidewire was inserted. Over this, the cooling catheter was advanced under fluoroscopic guidance. The guidewire was removed and the ports of the cooling catheter were flushed with normal saline plus heparin. The cooling catheter was then sutured in place and a Biopatch placed. It was then dressed with Tegaderm. Decision was made to leave the radial artery sheath in place as the previously placed arterial line did not seem to be working properly. Patient was hemodynamically stable on low-dose epinephrine. He was then transported to the ICU for further workup and management. This ended the case. Coronary angiography findings: LMT-this is a large-caliber vessel which bifurcates into the LAD and circumflex. Relatively short in length with mild diffuse disease. LAD-this is large caliber and moderately calcified. Proximal vessel has diffuse mild disease and provides a medium caliber first diagonal which has ostial 99% stenosis and the rest of the vessel appears to be at least mildly to moderately diseased. The mid LAD after the ostium of the D1 has a 95 to 99% stenosis with significant thrombus burden. There appear to be additional thrombus areas in the mid segment and mild to moderate disease. The mid LAD provides a large caliber second diagonal which has ostial to proximal 80% stenosis and branches more distally. Then, the distal LAD has mild disease until it reaches near the apex where there is calcified subtotal to total occlusion. There was FELICIANO I flow in the LAD on initial injection. LCx-this is large caliber and 100% occluded just after the ostium. Appears to be a chronic total occlusion. The distal AV groove vessel fills via left to left collateralization and reveals a large branching OM1, a posterolateral branch, and what appears to likely be a PDA. RCA-medium to large in caliber. Ostial 90% stenosis. Proximal vessel has diffuse disease and then in the mid segment there is 99% narrowing at the origin of the second RV marginal branch. Beyond this, the distal RCA has diffuse disease with up to 80% narrowing. It becomes a medium to large branching posterolateral with diffuse mild disease and it appears that there is an occluded PDA. Thus, it is likely codominant with the circumflex. PCI of mid LAD- 0% residual stenosis post PCI FELICIANO-3 flow except at the apex. No evidence of dissection or perforation PCI of apical LAD- 0% residual stenosis in the stented segment. There is no significant flow distal to the stent and suggesting of occluded m icrovascular vessels. Summary: 1. Severe multivessel coronary disease. 2. Successful PCI of the mid LAD with implantation of a drug-eluting stent. This is the culprit lesion for ST elevation [place] and cardiac arrest. 3. Apparent chronic total occlusion of the apical LAD, proximal circumflex, right PDA, and severe disease of the RCA. 4. Patient also had a hypothermia cooling catheter placed in the right femoral vein. 5. Patient will be on aspirin 325 mg p.o. daily, Plavix 75 mg p.o. daily (Plavix loading dose 600 mg p.o. once NG tube placed to administer medication), continue Integrilin drip for 12 hours, and continue heparin drip for 1 hour after loading dose of Plavix has been provided. 6. Guideline directed medical therapy currently limited to aspirin and statin. Once hemodynamically stable can consider addition of beta-brennan plus or minus GONZALO inhibitor/ARB. Hemodynamics Rest Ao:: 190/107 mmHg Final Ao: 121/89 mmHg LV: not performed Recommendations Recommendations: Medical Therapy and/or Counseling and PCI without planned CABG Radiation Exposure (mGy) 4003 mGy, fluoroscopy time 14.9 minutes Contrast (mls) 210 Anesthesia 1 mg IV Versed, 25 mcg IV fentanyl Procedural Complication(s) None Disposition ICU I attest to the content of the Intraoperative Record and any orders documented therein. Any exceptions are noted below. [facility] Card [facility] Procedure Codes Cardiac Catheterization Procedure 1: Cardiovascular Cath Procedures: 99924 Coronaries Therapeutic Services & Ancillary Procedure 1: Cardiovascular Tx and Anc Procedures: 20310 Ultrasonic Guidance Vascular Access Procedure 2: Cardiovascular Tx and Anc Procedures: 22417 Insertion Central Venous Catheter (Hypothermia cooling catheter) Moderate Sedation Procedure 1: Sedation/Anesthesia: 63109 Mod Sedation by the same physician;Init15 Min Child Age 5 & Up (Initial 15-minute, start 1255) Procedure 2: Sedation/Anesthesia: 67517 Mod Sedation by the same physician; Ea [id number] Minutes (Additional 88 minutes, end time 1438) Stenting Procedure 1: Cardiovascular Stent Procedures: 44401 Perc transluminal revascularization of acute sub/total occl, aMI (LAD) PG Care Time/CCT Total # of Minutes Spent Total Time Spent with Patient: Total time spent is greater than 50% in coordination of care (as documented) at patient's floor/unit and/or counseling patient:
[2023-03-01] MEDS ORDERED: Heparin IV Adult Wt-Based Low-Dose w/ INITIAL Bolus Protocol IV SCH (16:26)
[2023-03-01] MEDS ORDERED: ICU Protocol for HYPERglycemia SCH (16:30)
[2023-03-01 16:36] LABS: BUN Creatinine Ratio 16.4 (10-20); Calcium 8.6 mg/dl (8.6-10.3); Creatinine Clr Calc Pharmacy 61.5 ml/min; Est GFR (African American) 55.8 ml/min; Est GFR (Non-African American) 48.1 ml/min; Potassium 4.4 mmol/L (3.5-5.1)
--- NOTE | 2023-03-01 16:42 | CT Scan Report ---
CT SCAN OF THE BRAIN WITHOUT IV CONTRAST CLINICAL HISTORY: Anoxia. COMPARISON STUDY: No priors. TECHNIQUE: Unenhanced axial CT scan of the brain is performed from the vertex to the skull base. A do se lowering technique was utilized adhering to the principles of ALARA. The examination is significan tly degraded by the presence of residual IV contrast. CT DOSE: 625.8 mGy.cm FINDINGS: An endotracheal tube is noted on the hand tool lapper tomogram. Brain parenchyma: There is age-related involutional change noting mild to moderate subcortical and pe riventricular microangiopathic disease. There is evidence of hemorrhage, mass effect, or acute territ orial ischemia. Harrell-white matter differentiation is preserved. No extra-axial fluid collection is se en. Ventricles, sulci, cisterns: Prominent secondary to involutional change. Intracranial vasculature: There is atherosclerotic calcification of the cavernous carotid and vertebr al arteries. Calvarium: Unremarkable. Sinuses and mastoids: There is trace mucosal thickening within the maxillary antra noting an air-flui d level in the right. There is moderate mucosal thickening within the ethmoid sinuses. Mild mucosal t hickening is seen within the frontal and sphenoid sinuses. The mastoid air cells are well pneumatized . Orbits: The bony orbits are grossly intact. IMPRESSION: 1. There is no evidence of hemorrhage, mass effect, or acute territorial ischemia by CT criteria. 2. Pansinus disease as above. ACT 112: Negative or not required by law. Electronically signed by: Jefe Guerrero M.D. 03/01/2023 4:41 PM
[2023-03-01] MEDS ORDERED: CARBOHYDRATES FOR HYPOGLYCEMIA PO PRN (17:00)
[2023-03-01] MEDS ORDERED: GLUCAGON FOR INJ 1 MG VIAL IM PRN (17:00)
[2023-03-01] MEDS ORDERED: GLUCOSE 40% GEL 15 GM TUBE PO PRN (17:00)
[2023-03-01] MEDS ORDERED: GLUCOSE 10 TAB/TUBE PO PRN (17:00)
[2023-03-01] MEDS ORDERED: DEXTROSE 50% 50 ML SYRINGE IV PRN (17:00)
[2023-03-01] MEDS: INSULIN REGULAR 250 UNITS in SODIUM CHLORIDE 0.9% 247.5 ML IV SCH (17:11)
[2023-03-01] MEDS ORDERED: INSULIN HUMAN REGULAR PER UNIT 5 UNITS in SYRINGE 4.95 ML IV ONE (17:15)
[2023-03-01] MEDS: propofoL 1,000 MG/100 ML VIAL IV SCH ×2 (17:21→21:04)
[2023-03-01] MEDS: HEPARIN SODIUM/DEXTROSE 25,000 UNITS/500 ML BAG IV SCH (17:28)
[2023-03-01] MEDS ORDERED: HEPARIN IV BOLUS 4,000 UNITS in SYRINGE 0 ML IV ONE (17:30)
[2023-03-01] MEDS: INSULIN ASPART PER UNIT CHARGE SC SCH ×2 (17:32→20:26)
--- NOTE | 2023-03-01 17:53 | Cardiology Consultation ---
Date of Consultation March 01, 2023 Assessment & Plan (1) Cardiac arrest: (2) Myocardial infarction acute: (3) Anoxic brain injury: -Continue antiplatelet therapy with aspirin, clopidogrel, and patient is to complete a 12-hour infusion of Integrilin status post complex mid and distal LAD PCI. -Patient had required transient treatment with an epinephrine infusion but this was weaned postcardiac catheterization, and blood pressure upon repeat was stable off of pressors. -Patient now DNR. -Continue to follow, with regards to neurologic prognosis. Case discussed with Dr Coffey of interventional cardiology. History of Present Illness Attending Physician: Sarah Porras MD History of Present Illness Mr Abebe is a 77-year-old male seen in cardiology consultation per the request of Valeria Donovan PA-C for ongoing cardiac management postcardiac arrest. Patient seen in ICU room 101 status post cardiac catheterization. Patient with no known history of heart disease. Had recently been diagnosed with diabetes. He had been shoveling snow earlier today. After he was in his home, without complaint, he collapsed suddenly, witnessed by his spouse. Patient was unresponsive for about 10 minutes prior to the arrival of police. In the ED delivered [address] segment elevation initial EKG. EMS administered 2 doses of epinephrine, amiodarone, and additional defibrillation was administered with patient having had return of circulation 50 minutes prior to arrival to the emergency department. Patient underwent endotracheal intubation prior to arrival. He underwent emergent cardiac catheterization with findings of severe multivessel coronary heart disease including a 95-99% mid LAD with thrombus noted. Diffuse mid and distal LAD disease also noted. The circumflex coronary artery was 100% occluded just after the ostium and appeared to be a chronic total occlusion. The right coronary artery was severely calcified with a 90% ostial stenosis and a 99% mid stenosis. The patient underwent PCI of the mid LAD with implantation of drug- eluting stent. Patient felt to have a chronic total occlusion of the apical LAD, proximal circumflex, and severe proximal, mid, and distal disease of the right coronary artery. Patient transferred to the intensive care unit on an Integrilin infusion which is planned for 12 hours. 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 Family able to assist with care as needed. Feels Safe at Home: Yes Diet: diabetic Diet Comment: stated trying to watch sugar intake, newly dx diabetic during the past year weight has: remained stable Physical Activity Frequency: 5-6 Times per Week Physical Activity Frequency Comment: walks daily about 1 mile or so Seatbelt Use: always Do you think of yourself as: straight/heterosexual Gender Identity: Male Review of Systems Review of Systems: Unobtainable due to cognitive status Physical Exam Constitutional: + mechanically ventilated Respiratory: normal respiratory effort, lungs clear to auscultation Cardiovascular: RRR, no murmur, no edema Gastrointestinal (Abdomen): normal bowel sounds, soft, nontender, no hepatosplenomegaly Neurologic: Unresponsive, myoclonic movements noted spontaneously Genitourinary: Harrell catheter in place Results & Data Vital Signs (Past 12 Hours) Vital Signs Pulse Resp BP Pulse Ox O2 Del Method FiO2 03/01/23 15:14 120 H 32 H 93 100 03/01/23 12:40 72 21 94 Mechanical Vent 03/01/23 12:40 180/115 H 03/01/23 12:35 81 20 95 Mechanical Vent 03/01/23 12:35 187/119 H 03/01/23 12:31 72 29 H 96 Mechanical Vent 03/01/23 12:31 182/116 H 03/01/23 12:30 74 28 H 95 Mechanical Vent 03/01/23 12:25 68 29 H 95 Mechanical Vent 03/01/23 12:25 164/132 H 03/01/23 12:20 75 27 H 97 55 03/01/23 12:20 67 28 H 94 Mechanical Vent 03/01/23 12:20 190/123 H 03/01/23 12:15 70 26 H 95 Mechanical Vent 03/01/23 12:15 181/123 H 03/01/23 12:11 73 21 03/01/23 12:11 113/86 03/01/23 12:10 78 23 97 Mechanical Vent 03/01/23 12:07 77 03/01/23 12:05 71 22 113/86 96 03/01/23 12:04 77 25 H 99 Mechanical Vent Laboratory Results Cardiac Enzymes 03/01/23 Range/Units 12:13 AST 32 (13-39) U/L Troponin I High Sens 141.6 H* (0-20) pg/ml CBC 03/01/23 Range/Units 12:13 WBC 14.76 H (4.8-10.8) K/ul RBC 5.14 (4.70-6.10) M/uL Hgb 15.3 (14.0-18.0) g/dl Hct 48.6 (42.0-52.0) % Plt Count 281 (130-400) K/uL Neut # (Auto) 9.80 H (1.40-6.50) K/uL Lymph # (Auto) 3.33 (1.20-3.40) K/uL [place] # (Auto) 0.75 H (0.11-0.59) K/uL Eos # (Auto) 0.26 (0.00-0.50) K/uL Baso # (Auto) 0.09 (0.00-0.20) K/uL Comprehensive Metabolic Panel 03/01/23 03/01/23 Range/Units 12:13 15:52 Sodium 137 135 L (136-145) mmol/L Potassium 4.3 4.4 (3.5-5.1) mmol/L Chloride 102 100 (98-107) mmol/L Carbon Dioxide 20 L 20 L (21-32) mmol/L BUN 19 23 (6-23) mg/dl Creatinine 1.20 1.40 (0.6-1.4) mg/dl Glucose 324 H* 379 H* (70-99(Fasting)) mg/dl Calcium 8.8 8.6 (8.6-10.3) mg/dl AST 32 (13-39) U/L ALT 24 (7-52) U/L Alkaline Phosphatase 65 (34-104) U/L Total Protein 6.7 (6.0-8.3) gm/dl Albumin 3.8 (3.4-5.0) gm/dl Diagnostic Findings EKG performed in the emergency department revealed atrial fibrillation with rapid ventricular response and diffuse anterior, lateral and inferior Q waves Echocardiogram interpreted independently: Severe diffuse left ventricular hypokinesis with septal dyskinesis, calculated LVEF 12% CT of the brain: No evidence of hemorrhage, mass effect, or acute territorial ischemia by CT criteria
[2023-03-01] MEDS: NOREPINEPHRINE/D5W 4 MG/250 ML PLCT IV SCH ×3 (18:22→22:21)
[2023-03-01] MEDS ORDERED: INFLUENZA VACCINE HIGH-DOSE (HD-IIV4) PF 65+ 0.7mL SYR IM ONE (18:46)
[2023-03-01 21:12] LABS: iSTAT Art Bld Gas pCO2 Correct 36 mmHg (35-46); iSTAT Art Bld Gas pH Corrected 7.286 (7.35-7.45); iSTAT Arterial Blood Gas HCO3 17 meg/L (19-24); iSTAT Arterial Blood Gas pCO2 37 mmHg (35-46); iSTAT Arterial Blood Gas pH 7.28 (7.35-7.45); iSTAT Arterial Blood Gas pO2 83 mmHg (80-95); iSTAT Arterial Blood Gas pO2 C 81; iSTAT Carbon Dioxide 18 mmol/L (24-31); iSTAT FiO2 100 %; iSTAT Hematocrit 42 % (42-52); iSTAT Hemoglobin 14.3 g/dl (14.0-18.0); iSTAT Potassium 3.8 mmol/L (3.3-5.0); iSTAT Site Art Line; iSTAT Sodium 135 mmol/L (135-144)
[2023-03-01 21:40] LABS: ANTI-Xa, UFH(UnfractionatedHep 0.71 IU/ml (0.3-0.7)
[2023-03-01] MEDS: ACETAMINOPHEN 1,000 MG/100 ML VIAL IV PRN (22:32)
[2023-03-01] MEDS ORDERED: ALBUTEROL 0.083% NEBU SOLN 3 ML VIAL NEB PRN (23:51)
[2023-03-01] MEDS ORDERED: ALBUTEROL 0.083% NEBU SOLN 3 ML VIAL ONE (23:57)
[2023-03-02] MEDS: NOREPINEPHRINE/D5W 4 MG/250 ML PLCT IV SCH (00:23)
[2023-03-02] MEDS: propofoL 1,000 MG/100 ML VIAL IV SCH ×10 (01:01→22:02)
[2023-03-02] MEDS: Double Conc; 16mg in 500mL IV SCH ×4 (02:12→20:00)
[2023-03-02 04:25] LABS: Base Excess ABG -3.9 mEq/L (-9-1.8); HCO3 ABG 22 mmol/L (19-24); PCO2 ABG 40 mmHg (35-46); PO2 ABG 123 mmHg (80-95); pH ABG 7.34 (7.35-7.45)
[2023-03-02 04:32] LABS: Allen Test Pos (Pos)
[2023-03-02] MEDS: SODIUM CHLORIDE 0.9% 1,000 ML IV SCH ×2 (04:47→17:55)
[2023-03-02] MEDS: Standard Conc; 4 MG in 250 mL for HYPOTENSION IV SCH ×2 (04:47→10:28)
[2023-03-02 04:49] LABS: Albumin Level 3.6 gm/dl (3.4-5.0); Bilirubin Direct 0.2 mg/dl (0-0.2); Bilirubin,Total 0.9 mg/dl (0.2-1.0); Magnesium 1.6 mg/dl (1.7-2.4); Phosphorus 5.1 mg/dl (2.5-4.9); Total Protein 6.4 gm/dl (6.0-8.3)
[2023-03-02 04:50] LABS: Basophils # (auto) 0.06 K/uL (0.00-0.20); Basophils % (auto) 0.2 %; Eosinophils # (auto) 0.01 K/uL (0.00-0.50); Hematocrit (blood only) 40.8 % (42.0-52.0); Hemoglobin 13.7 g/dl (14.0-18.0); Immature Granulocytes % (auto) 0.8 %; Lymphocytes # (auto) 3.02 K/uL (1.20-3.40); Lymphocytes % (auto) 12.3 %; Mean Corpuscular Hemoglobin 30.3 pg (25.0-34.0); Mean Corpuscular Hgb Conc 33.6 g/dL (32.0-36.0); Mean Corpuscular Volume 90.3 fL (80.0-100.0); Mean Platelet Volume 10.2 fL (9.4-12.4); Monocytes % (auto) 8.1 %; Neutrophils # (auto) 19.31 K/uL (1.40-6.50); Neutrophils % (auto) 78.6 %; Platelet Count 321 K/uL (130-400); RDW Coefficient of Variation 13.4 % (11.5-14.5); RDW Standard Deviation 43.8 fL (36.4-46.3); Red Blood Count 4.52 M/uL (4.70-6.10)
[2023-03-02 04:54] LABS: ANTI-Xa, UFH(UnfractionatedHep 0.31 IU/ml (0.3-0.7)
[2023-03-02 05:00] LABS: Troponin I High Sensitivity 13883.5 pg/ml (0-20)
[2023-03-02 05:38] LABS: BUN Creatinine Ratio 17.8 (10-20); Calcium 8.1 mg/dl (8.6-10.3); Creatinine Clr Calc Pharmacy 56.5 ml/min; Est GFR (African American) 50.5 ml/min; Est GFR (Non-African American) 43.6 ml/min
[2023-03-02] MEDS: MAGNESIUM SULFATE / D5W 1 GM/100 ML BAG IV SCH ×4 (06:23→21:43)
[2023-03-02] MEDS: INSULIN ASPART PER UNIT CHARGE SC SCH ×4 (08:20→20:09)
--- NOTE | 2023-03-02 08:21 | Electroencephalogram ---
EEG Procedure Note Date of Service March 02, 2023 Start / End Times Start Time: 611 End Time: 06 Referring Physician duane Gomez History cardiac arrest Home Medication List Medication Instructions Recorded Confirmed Type atorvastatin 40 mg tablet 40 mg PO QAM 03/01/23 03/01/23 History glimepiride 2 mg tablet 2 mg PO QAM 03/01/23 03/01/23 History metformin 500 mg tablet,extended 2,000 mg PO QAM 03/01/23 03/01/23 History release 24 hr Inpatient Medication List Albuterol (Albuterol 0.083% Nebu Soln 3 Ml Vial) 2.5 mg NEB Q6R PRN; Protocol PRN Reason: wheeze Stop: 03/31/23 23:50 Last Admin: 03/02/23 00:00 Dose: 2.5 mg Documented By: JESUS MANUEL Epinephrine HCl () 4 mg in 254 mls @ 49.301 mls/hr IV .Q5H10M ALDA; Protocol Stop: 03/31/23 12:59 Last Admin: 03/02/23 04:47 Dose: Not Given Documented By: Admin: 03/01/23 22:27 Dose: Not Given Documented By: Admin: 03/01/23 19:43 Dose: Not Given Documented By: Titration: 03/01/23 17:24 Dose: Infused Documented By: Titration: 03/01/23 12:22 Dose: 0.5 mcg/kg/min, 246.5 mls/hr Documented By: Titration: 03/01/23 12:16 Dose: 0.8 mcg/kg/min, 394.4 mls/hr Documented By: Titration: 03/01/23 12:12 Dose: 1 mcg/kg/min, 493 mls/hr Documented By: Admin: 03/01/23 12:07 Dose: 0 mcg/kg/min, 0.5 mls/hr Documented By: KRISTOPHER Co-signed By: BELEM Sodium Chloride (Nss) 1,000 mls @ 75 mls/hr IV .[id number] ALDA Stop: 03/31/23 14:29 Last Admin: 03/02/23 04:47 Dose: 75 mls/hr Documented By: Infusion: 03/02/23 04:47 Dose: Infused Documented By: Admin: 03/01/23 15:54 Dose: 75 mls/hr Documented By: KJL Insulin Human Regular 250 (units/ Sodium Chloride) 250 mls @ 5.8 mls/hr IV .Q24H [facility]; Protocol Stop: 03/31/23 16:59 Last Titration: 03/02/23 06:47 Dose: 5.8 units/hr, 5.8 mls/hr Documented By: CP Co-signed By: DMB Titration: 03/01/23 19:16 Dose: 5.8 units/hr, 5.8 mls/hr Documented By: CP Co-signed By: KJL Titration: 03/01/23 18:20 Dose: 5.8 units/hr, 5.8 mls/hr Documented By: KJL Co-signed By: CA Admin: 03/01/23 17:11 Dose: 4.8 units/hr, 4.8 mls/hr Documented By: KJL Co-signed By: CA Propofol (Diprivan) 1,000 mg in 100 mls @ 31.056 mls/hr IV .Q3H14M ALDA; Protocol Stop: 03/04/23 14:59 Last Admin: 03/02/23 07:57 Dose: 40 mcg/kg/min, 31.1 mls/hr Documented By: WS Co-signed By: DMB Titration: 03/02/23 07:29 Dose: Infused Documented By: WS Co-signed By: DMB Titration: 03/02/23 06:47 Dose: 40 mcg/kg/min, 31.1 mls/hr Documented By: CP Co-signed By: DMB Admin: 03/02/23 04:49 Dose: Not Given Documented By: Admin: 03/02/23 04:16 Dose: 40 mcg/kg/min, 31.1 mls/hr Documented By: CP Co-signed By: CF Titration: 03/02/23 04:14 Dose: Infused Documented By: CP Co-signed By: CF Admin: 03/02/23 01:01 Dose: 40 mcg/kg/min, 31.1 mls/hr Documented By: CP Co-signed By: TMG Titration: 03/02/23 01:01 Dose: Infused Documented By: CP Co-signed By: TMG Titration: 03/01/23 23:56 Dose: 40 mcg/kg/min, 31.1 mls/hr Documented By: Admin: 03/01/23 21:04 Dose: 30 mcg/kg/min, 23.3 mls/hr Documented By: CP Co-signed By: TMG Titration: 03/01/23 21:04 Dose: Infused Documented By: CP Co-signed By: TMG Titration: 03/01/23 19:16 Dose: 30 mcg/kg/min, 23.3 mls/hr Documented By: CP Co-signed By: KJL Titration: 03/01/23 17:58 Dose: 30 mcg/kg/min, 23.3 mls/hr Documented By: Admin: 03/01/23 17:21 Dose: 20 mcg/kg/min, 15.5 mls/hr Documented By: KJL Co-signed By: CA Midazolam HCl (Versed) 125 mg in 250 mls @ 0 mls/hr IV .Q0M [facility]; Protocol Stop: 03/31/23 14:59 Last Titration: 03/02/23 06:47 Dose: 0 mg/hr, 0 mls/hr Documented By: CP Co-signed By: DMB Titration: 03/01/23 19:16 Dose: 0 mg/hr, 0 mls/hr Documented By: CP Co-signed By: KJL Titration: 03/01/23 17:35 Dose: 0 mg/hr, 0 mls/hr Documented By: KJL Co-signed By: ES Admin: 03/01/23 17:21 Dose: 4 mg/hr, 8 mls/hr Documented By: LOC Co-signed By: CA Fentanyl Citrate (Fentanyl Citrate) 2,500 mcg in 250 mls @ 7.5 mls/hr IV .[id number] [facility]; Protocol Stop: 03/15/23 14:59 Last Titration: 03/02/23 06:47 Dose: 75 mcg/hr, 7.5 mls/hr Documented By: CP Co-signed By: DMB Titration: 03/01/23 23:57 Dose: 75 mcg/hr, 7.5 mls/hr Documented By: CP Co-signed By: TMG Titration: 03/01/23 19:16 Dose: 0 mcg/hr, 0 mls/hr Documented By: CP Co-signed By: KJL Admin: 03/01/23 17:21 Dose: 25 mcg/hr, 2.5 mls/hr Documented By: LOC Co-signed By: LAKESHA Heparin Sodium/Dextrose (Heparin Sodium/Dextrose) 25,000 units in 500 mls @ 18 mls/hr IV .Q24H [facility]; Protocol Stop: 03/31/23 15:44 Last Titration: 03/02/23 06:47 Dose: 900 units/hr, 18 mls/hr Documented By: CP Co-signed By: DMDaylin Titration: 03/01/23 21:42 Dose: 900 units/hr, 18 mls/hr Documented By: CP Co-signed By: AKD Titration: 03/01/23 19:16 Dose: 1,000 units/hr, 20 mls/hr Documented By: CP Co-signed By: LOC Admin: 03/01/23 17:28 Dose: 1,000 units/hr, 20 mls/hr Documented By: LOC Co-signed By: ES Acetaminophen (Ofirmev) 1,000 mg in 100 mls @ 400 mls/hr IV Q8H PRN PRN Reason: Temp >36.5 or pain Stop: 03/04/23 22:14 Last Infusion: 03/01/23 23:10 Dose: Infused Documented By: Admin: 03/01/23 22:32 Dose: 400 mls/hr Documented By: CP Norepinephrine Bitartrate (Levophed/D5w) 16 mg in 500 mls @ 48.375 mls/hr IV .[id number] [facility]; Protocol Stop: 04/01/23 00:59 Last Titration: 03/02/23 06:47 Dose: 0.2 mcg/kg/min, 48.4 mls/hr Documented By: CP Co-signed By: DMB Titration: 03/02/23 06:28 Dose: 0.2 mcg/kg/min, 48.4 mls/hr Documented By: Titration: 03/02/23 05:48 Dose: 0.25 mcg/kg/min, 60.5 mls/hr Documented By: Admin: 03/02/23 02:12 Dose: 0.3 mcg/kg/min, 72.6 mls/hr Documented By: CP Co-signed By: TMG Magnesium Sulfate/Dextrose (Magnesium Sulfate / D5w) 1 gm in 100 mls @ 50 mls/hr IV Q2H [facility] Stop: 03/02/23 10:14 Last Admin: 03/02/23 07:57 Dose: 50 mls/hr Documented By: Infusion: 03/02/23 07:57 Dose: Infused Documented By: Admin: 03/02/23 06:23 Dose: 50 mls/hr Documented By: CAITLYN Insulin Aspart (Insulin Aspart Per Unit Charge) 0 units SC ACHS [facility] Stop: 03/31/23 16:29 Last Admin: 03/01/23 20:26 Dose: Not Given Documented By: Admin: 03/01/23 17:32 Dose: Not Given Documented By: NYDIA Discontinued Medications Adenosine (Adenosine Iv Soln 3 Mg/Ml 2 Ml Vial) Confirm Administered Dose 6 mg IV .STK-MED ONE Stop: 03/01/23 13:28 Last Admin: 03/01/23 14:34 Dose: 6 mg Documented By: HÉCTOR Albuterol (Albuterol 0.083% Nebu Soln 3 Ml Vial) Confirm Administered Dose 2.5 mg .ROUTE .STK-MED ONE Stop: 03/01/23 23:58 Last Admin: 03/02/23 00:00 Dose: Not Given Documented By: NDC Clopidogrel Bisulfate (Clopidogrel Bisulfate 300 Mg Tab) 600 mg PO NOW STA Stop: 03/01/23 14:30 Last Admin: 03/01/23 15:49 Dose: 600 mg Documented By: EMILIAK Epinephrine HCl (Epinephrine Inj 1 Mg/Ml Amp) Confirm Administered Dose 1 mg .ROUTE .STK-MED ONE Stop: 03/01/23 13:00 Last Admin: 03/01/23 14:32 Dose: 1 mg Documented By: BPY Epinephrine HCl (Epinephrine Inj 1 Mg/Ml Amp) Confirm Administered Dose 3 mg .ROUTE .STK-MED ONE Stop: 03/01/23 13:02 Last Admin: 03/01/23 14:32 Dose: 3 mg Documented By: BPVimal Eptifibatide (Eptifibatide 2 Mg/Ml 10 Ml Vial (Internet Sales Manager Use Only)) Confirm Administered Dose 40 mg IV .STK-MED ONE Stop: 03/01/23 13:22 Last Admin: 03/01/23 14:33 Dose: 22.6 ml Documented By: BPVimal Eptifibatide (Eptifibatide 0.75 Mg/Ml 75mg Vial (Internet Sales Manager Use Only)) Confirm Administered Dose 75 mg IV .STK-MED ONE Stop: 03/01/23 13:22 Last Increment: 03/01/23 14:34 Dose: 20 mg Documented By: HÉCTOR Eptifibatide (Eptifibatide 2 Mg/Ml 10 Ml Vial (Internet Sales Manager Use Only)) Confirm Administered Dose 20 mg IV .STK-MED ONE Stop: 03/01/23 13:30 Last Admin: 03/01/23 14:34 Dose: Not Given Documented By: HÉCTOR Fentanyl Citrate (Fentanyl Citrate Pf 100 Mcg/2 Ml Vial) Confirm Administered Dose 100 mcg .ROUTE .STK-MED ONE Stop: 03/01/23 12:25 Last Admin: 03/01/23 12:25 Dose: 100 mcg Documented By: KRISTOPHER Fentanyl Citrate (Fentanyl Citrate Pf 100 Mcg/2 Ml Vial) Confirm Administered Dose 100 mcg .ROUTE .STK-MED ONE Stop: 03/01/23 12:32 Last Increment: 03/01/23 14:29 Dose: 75 mcg Documented By: HÉCTOR Fentanyl Citrate (Fentanyl Citrate Pf 100 Mcg/2 Ml Vial) 100 mcg IV ONE ONE Stop: 03/01/23 12:26 Last Admin: 03/01/23 12:55 Dose: Not Given Documented By: KRISTOPHER Heparin Sodium (Porcine) (Heparin (Porcine) 1000 Unit/Ml 10 Ml (Internet Sales Manager Use Only)) Confirm Administered Dose 10,000 units .ROUTE .STK-MED ONE Stop: 03/01/23 12:25 Last Admin: 03/01/23 13:58 Dose: 10,000 units Documented By: HÉCTOR Heparin Sodium/Dextrose (Heparin 54757 Unit/500 Ml D5w) Confirm Administered Dose 25,000 units IV .STK-MED ONE Stop: 03/01/23 14:06 Last Admin: 03/01/23 17:27 Dose: Not Given Documented By: LOC Heparin Sodium/Sodium Chloride (Heparin In Nss Infusion 1000 Unit/500 Ml (2 U/Ml) Bag) Confirm Administered Dose 3,000 units IV .STK-MED ONE Stop: 03/01/23 12:26 Last Admin: 03/01/23 14:24 Dose: 3,000 units Documented By: HÉCTOR Eptifibatide (Integrilin) 75 mg in 100 mls @ 20.704 mls/hr IV .Q4H50M [facility]DA; Protocol Stop: 03/02/23 02:00 Last Infusion: 03/02/23 02:07 Dose: Infused Documented By: CAITLYN Co-signed By: KALYANI Admin: 03/01/23 23:01 Dose: 2 mcg/kg/min, 20.7 mls/hr Documented By: CAITLYN Co-signed By: FAUSTINA Infusion: 03/01/23 22:39 Dose: Infused Documented By: CAITLYN Co-signed By: FAUSTINA Admin: 03/01/23 17:49 Dose: 2 mcg/kg/min, 20.7 mls/hr Documented By: LOC Co-signed By: NYDIA Infusion: 03/01/23 17:49 Dose: Infused Documented By: LOC Co-signed By: NYDIA Admin: 03/01/23 15:54 Dose: 2 mcg/kg/min, 20.7 mls/hr Documented By: LOC Co-signed By: DONOVAN Lactated Ringer's (Lr) 1,000 mls @ 200 mls/hr IV .Q5H [facility] Stop: 03/31/23 14:59 Last Admin: 03/01/23 17:32 Dose: Not Given Documented By: NYDIA Lactated Ringer's (Lr) 1,000 mls @ 75 mls/hr IV .[id number] ALDA Stop: 03/31/23 14:59 Last Admin: 03/01/23 17:32 Dose: Not Given Documented By: NYDIA Insulin Human Regular 5 units/ (Syringe) 5 mls @ 30 mls/min IV ONE ONE Stop: 03/01/23 17:16 Last Admin: 03/01/23 17:19 Dose: 30 mls/min Documented By: LOC Co-signed By: LAKESHA Heparin Sodium (Porcine) 4,000 (units/ Syringe) 4 mls @ 10 mls/min IV ONE ONE Stop: 03/01/23 17:31 Last Admin: 03/01/23 17:28 Dose: 10 mls/min Documented By: LOC Co-signed By: NYDIA Norepinephrine Bitartrate (Levophed/D5w) 4 mg in 250 mls @ 145.575 mls/hr IV .Q1H44M [facility]DA; Protocol Stop: 03/02/23 01:00 Last Titration: 03/02/23 02:21 Dose: Infused Documented By: Admin: 03/02/23 00:23 Dose: 0.3 mcg/kg/min, 145.6 mls/hr Documented By: CP Co-signed By: KIRSTIN Titration: 03/02/23 00:23 Dose: Infused Documented By: CP Co-signed By: KIRSTIN Titration: 03/01/23 23:26 Dose: 0.3 mcg/kg/min, 145.6 mls/hr Documented By: Admin: 03/01/23 22:21 Dose: 0.2 mcg/kg/min, 97.1 mls/hr Documented By: CP Co-signed By: JEFFREY Titration: 03/01/23 22:20 Dose: Infused Documented By: CP Co-signed By: JEFFREY Admin: 03/01/23 19:45 Dose: 0.2 mcg/kg/min, 97.1 mls/hr Documented By: CP Co-signed By: FAUSTINA Titration: 03/01/23 19:45 Dose: Infused Documented By: CP Co-signed By: FAUSTINA Titration: 03/01/23 19:16 Dose: 0.2 mcg/kg/min, 97.1 mls/hr Documented By: CP Co-signed By: LOC Admin: 03/01/23 18:22 Dose: 0.2 mcg/kg/min, 97.1 mls/hr Documented By: LOC Co-signed By: LAKESHA Influenza Virus Vaccine (Influenza Vaccine High-Dose (Hd-Iiv4) Pf 65+ 0.7ml Syr) 0.7 ml IM .ONCE ONE Stop: 03/01/23 18:47 Last Admin: 03/01/23 19:44 Dose: Not Given Documented By: CAITLYN Ioversol (Optiray 350) Confirm Administered Dose 1 ml .ROUTE .STK-MED ONE Stop: 03/01/23 15:37 Last Admin: 03/01/23 15:38 Dose: 210 ml Documented By: HÉCTOR Midazolam HCl (Midazolam Hcl 1 Mg/Ml 2ml Vial) Confirm Administered Dose 2 mg .R OUTE .STK-MED ONE Stop: 03/01/23 12:25 Last Admin: 03/01/23 13:59 Dose: 2 mg Documented By: BPY Midazolam HCl (Midazolam Hcl 1 Mg/Ml 2ml Vial) 2 mg IV ONCE STA Stop: 03/01/23 14:51 Last Admin: 03/01/23 17:32 Dose: Not Given Documented By: ES Miscellaneous (Insulin Protocol Goal Range ) 1 each N/A ONE ONE Stop: 03/01/23 14:51 Last Admin: 03/01/23 17:27 Dose: Not Given Documented By: LOC Nicardipine HCl (Nicardipine Hcl Inj 2.5 Mg/Ml 10 Ml Amp) Confirm Administered Dose 25 mg .ROUTE .[email or web address] ONE Stop: 03/01/23 12:25 Last Admin: 03/01/23 13:59 Dose: 25 mg Documented By: HÉCTOR Nitroglycerin/Dextrose (Nitroglycerin/D5w 100mcg/Ml 20ml Syr) Confirm Administered Dose 2,000 mcg .ROUTE .[email or web address] ONE Stop: 03/01/23 12:26 Last Admin: 03/01/23 14:37 Dose: 2,000 mcg Documented By: HÉCTOR Norepinephrine Bitartrate (Norepinephrine/D5w 4 Mg/250 Ml) Confirm Administered Dose 4 mg IV .Sendori ONE Stop: 03/01/23 12:13 Last Admin: 03/01/23 13:58 Dose: Not Given Documented By: HÉCTOR Description This is a 21 electrode EEG with a single channel dedicated to limited EKG. The electrodes were placed in accordance with the International 10-20 system. Interpretation This is a 21 electrode EEG with a single channel dedicated to limited EKG. The electrodes were placed in accordance with the International 10-20 system. There is diffuse low voltage slowing with episodic brief cortical activities with burst suppression t/o the study. Photic stimulation: not done. Hyperventilation performed: ___ unremarkable; _x_ not performed. Interpretation Abnromal EEG due to low voltage diffuse slowing and in burst suppression. There is no epileptic discharge. Patient not in status. [facility] EEG Procedure Codes Indication for Procedure (1) Cardiac arrest: Neurology Neurology: 95774 EEG Cerebral Eval only
--- NOTE | 2023-03-02 08:49 | Critical Care Progress Note ---
Date of Service March 02, 2023 Assessment & Plan (1) Cardiac arrest: (2) Acidosis due to secondary diabetes: (3) Acute hypoxemic respiratory failure: (4) Myocardial infarction acute: (5) Morbid obesity with BMI of 40.0-44.9, adult: (6) Anoxic brain injury: Plan Impression: 77-year-old male with morbid obesity diabetes and potential neurocognitive decline admitted with out of hospital cardiac arrest. He underwent cardiac catheterization with stents to the LAD x 2 but has significant multivessel disease. He remains hypotensive and chest x-ray demonstrates cardiomegaly with diffuse pulmonary edema. He is already demonstrating signs of potential anoxic brain injury with myoclonic jerking and a unfavorable neurological exam. 24-hour events: Patient presented to the emergency room status post [id number] cardiac arrest. He received defibrillation x 2 in the field and was intubated in the field without any medications. He was taken to the [facility] where 2 stents were placed into the LAD but he had multivessel disease. His EF on echo is about 10 to 15%. He remains on pressors. His oxygenation status has improved overnight. Recommendations: 1. Neurologic: Initial CT of the head yesterday unremarkable. EEG performed this morning showed low voltage with diffuse slowing and burst suppression. Will discontinue fentanyl and pause propofol to repeat neurological assessment. The patient is at risk for anoxic brain injury. Depending on his exam off sedation, may consider neurology consultation and MRI of the brain in the next 24 hours. Based on patient's bleeding and myoclonic jerking on presentation as well as recent clinical data, decision was made to not pursue therapeutic hypothermia. Continue euthermia. 2. Cardiovascular: Acute myocardial infarction with cardiac arrest. The patient has multivessel disease. Echo showed EF of 15% with multiple wall motion abnormalities. Continue management per cardiology. Currently on antiplatelet agents and heparin infusion. Continue to wean norepinephrine as tolerated. 3. Pulmonary: Severe hypoxemic respiratory failure. Continue ARDSnet ventilatory strategy. Current vent settings assist-control 17/470/0.5/8 with a peak pressure of 21 and a plateau pressure of 20. Blood gas this morning 7.34/40/123 - P/F 246 4. ID: At risk for aspiration pneumonia. White blood cell count elevated this morning. Tracheal aspirate Gram stain showed many white blood cells with moderate gram-positive cocci. Start Unasyn for potential aspiration event 5. Endocrine: Continue insulin infusion for glycemic control. Check hemoglobin A1c 6. GI: N.p.o. for now given hemodynamic instability. LFTs stable 7. Renal: At risk for acute kidney injury given hypoperfusion and contrast administration. Mild increase in serum creatinine today. Will need to trend the potassium as it is increased to 5. He is a poor candidate for renal replacement if he were to progress to acute renal failure 8. Heme-onc: Leukocytosis likely reactive but will continue to trend. Bleeding from multiple sites appears improved today. Continue antiplatelet agents per cardiology for now. The patient's overall prognosis is severely guarded. was updated at bedside. Advised her that the patient is continuing to require life support and is neurological status remains at risk. She expressed understanding and again reiterates that the patient would not want to pursue continued life-sustaining therapies if he were to be dependent on others for his activities of daily living. He definitely would not want tracheostomy or PEG tube and would likely be opposed to long-term long-term. Patient remains critically ill with multiorgan system failure/dysfunction. A total of 47 minutes of critical care time was spent in evaluation management of this patient. Admission and Anticipated Discharge Date Admission Date: March 01, 2023 Subjective Patient is intubated and sedated Review of Systems Review of Systems: Unobtainable due to endotracheal tube Physical Exam Constitutional: + morbidly obese and + mechanically vent ilated Neck: trachea midline, no thyromegaly Respiratory: no labored breathing Auscultation: + crackles and + rhonchi Cardiovascular: RRR, no murmur, no edema Gastrointestinal (Abdomen): Inspection/Auscultation: abdomen normal to inspection and + hypoactive bowel sounds Musculoskeletal: Extremities: extremities normal to inspection Skin: no rashes, warm and dry Lymphatic: no cervical lymphadenopathy Results & Data Results & Data Vital Signs (Past 12 Hours) Vital Signs Temp Pulse Resp Pulse Ox FiO2 03/02/23 07:35 102 H 17 97 50 03/02/23 06:40 37.5 C 101 H 16 98 03/02/23 06:30 37.5 C 94 H 16 97 03/02/23 06:20 37.5 C 90 16 98 03/02/23 06:10 37.5 C 73 16 98 03/02/23 06:00 37.6 C H 75 16 98 03/02/23 05:50 37.6 C H 67 16 99 03/02/23 05:40 37.6 C H 75 16 99 03/02/23 05:30 37.6 C H 71 16 99 03/02/23 05:30 12 50 03/02/23 05:20 37.6 C H 71 16 99 03/02/23 05:10 37.6 C H 73 16 99 03/02/23 05:00 37.7 C H 73 16 99 03/02/23 04:50 37.7 C H 75 16 97 03/02/23 04:40 37.7 C H 72 16 97 03/02/23 04:30 37.7 C H 74 16 98 03/02/23 04:20 37.7 C H 68 13 98 03/02/23 04:10 37.7 C H 74 16 97 03/02/23 04:00 37.7 C H 72 16 97 03/02/23 04:00 50 03/02/23 03:50 37.7 C H 72 16 98 03/02/23 03:40 37.8 C H 71 16 97 03/02/23 03:30 37.8 C H 73 16 97 03/02/23 03:20 37.8 C H 72 16 97 03/02/23 03:20 72 19 98 50 03/02/23 03:10 37.8 C H 67 14 97 03/02/23 03:00 37.8 C H 68 16 97 03/02/23 02:50 37.8 C H 70 16 97 03/02/23 02:40 37.8 C H 71 16 97 03/02/23 02:30 37.8 C H 73 15 97 03/02/23 02:20 37.9 C H 72 14 97 03/02/23 02:10 37.9 C H 71 15 97 03/02/23 02:00 37.9 C H 68 14 98 03/02/23 01:50 37.9 C H 71 16 99 03/02/23 01:40 37.9 C H 71 13 99 03/02/23 01:30 37.9 C H 70 14 99 03/02/23 01:20 37.9 C H 70 15 99 03/02/23 01:10 38.0 C H 70 15 99 03/02/23 01:00 38.0 C H 71 16 98 03/02/23 00:50 38.0 C H 70 16 98 03/02/23 00:40 38.1 C H 73 16 98 03/02/23 00:30 38.1 C H 67 17 97 03/02/23 00:20 38.1 C H 70 18 97 03/02/23 00:10 38.2 C H 73 16 97 03/02/23 00:00 38.2 C H 71 18 98 03/02/23 00:00 60 03/01/23 23:50 38.3 C H 73 24 95 03/01/23 23:40 38.3 C H 73 26 H 95 03/01/23 23:30 38.3 C H 72 27 H 96 03/01/23 23:20 72 28 H 96 03/01/23 23:18 71 29 H 100 60 03/01/23 23:10 71 29 H 98 03/01/23 23:00 68 27 H 99 03/01/23 22:50 72 30 H 100 03/01/23 22:40 72 28 H 100 03/01/23 22:30 73 29 H 100 03/01/23 20:45 74 29 H 100 90 Critical Care Results & Data Vital Signs (Past 12 Hours) Vital Signs Temp Pulse Resp Pulse Ox FiO2 03/02/23 07:35 102 H 17 97 50 03/02/23 06:40 37.5 C 101 H 16 98 03/02/23 06:30 37.5 C 94 H 16 97 03/02/23 06:20 37.5 C 90 16 98 03/02/23 06:10 37.5 C 73 16 98 03/02/23 06:00 37.6 C H 75 16 98 03/02/23 05:50 37.6 C H 67 16 99 03/02/23 05:40 37.6 C H 75 16 99 03/02/23 05:30 37.6 C H 71 16 99 03/02/23 05:30 12 50 03/02/23 05:20 37.6 C H 71 16 99 03/02/23 05:10 37.6 C H 73 16 99 03/02/23 05:00 37.7 C H 73 16 99 03/02/23 04:50 37.7 C H 75 16 97 03/02/23 04:40 37.7 C H 72 16 97 03/02/23 04:30 37.7 C H 74 16 98 03/02/23 04:20 37.7 C H 68 13 98 03/02/23 04:10 37.7 C H 74 16 97 03/02/23 04:00 37.7 C H 72 16 97 03/02/23 04:00 50 03/02/23 03:50 37.7 C H 72 16 98 03/02/23 03:40 37.8 C H 71 16 97 03/02/23 03:30 37.8 C H 73 16 97 03/02/23 03:20 37.8 C H 72 16 97 03/02/23 03:20 72 19 98 50 03/02/23 03:10 37.8 C H 67 14 97 03/02/23 03:00 37.8 C H 68 16 97 03/02/23 02:50 37.8 C H 70 16 97 03/02/23 02:40 37.8 C H 71 16 97 03/02/23 02:30 37.8 C H 73 15 97 03/02/23 02:20 37.9 C H 72 14 97 03/02/23 02:10 37.9 C H 71 15 97 03/02/23 02:00 37.9 C H 68 14 98 03/02/23 01:50 37.9 C H 71 16 99 03/02/23 01:40 37.9 C H 71 13 99 03/02/23 01:30 37.9 C H 70 14 99 03/02/23 01:20 37.9 C H 70 15 99 03/02/23 01:10 38.0 C H 70 15 99 03/02/23 01:00 38.0 C H 71 16 98 03/02/23 00:50 38.0 C H 70 16 98 03/02/23 00:40 38.1 C H 73 16 98 03/02/23 00:30 38.1 C H 67 17 97 03/02/23 00:20 38.1 C H 70 18 97 03/02/23 00:10 38.2 C H 73 16 97 03/02/23 00:00 38.2 C H 71 18 98 03/02/23 00:00 60 03/01/23 23:50 38.3 C H 73 24 95 03/01/23 23:40 38.3 C H 73 26 H 95 03/01/23 23:30 38.3 C H 72 27 H 96 03/01/23 23:20 72 28 H 96 03/01/23 23:18 71 29 H 100 60 03/01/23 23:10 71 29 H 98 03/01/23 23:00 68 27 H 99 03/01/23 22:50 72 30 H 100 03/01/23 22:40 72 28 H 100 03/01/23 22:30 73 29 H 100 03/01/23 20:45 74 29 H 100 90 Lab & Micro Results (Past 24 Hours) RBC 4.52 M/uL (4.70-6.10) L 03/02/23 WBC 24.60 K/ul (4.8-10.8) H 03/02/23 Hgb 13.7 g/dl (14.0-18.0) L 03/02/23 Hct 40.8 % (42.0-52.0) L 03/02/23 MCV 90.3 fL (80.0-100.0) 03/02/23 MCH 30.3 pg (25.0-34.0) 03/02/23 MCHC 33.6 g/dL (32.0-36.0) 03/02/23 RDW Standard Deviation 43.8 fL (36.4-46.3) 03/02/23 RDW Coefficient of Variation 13.4 % (11.5-14.5) 03/02/23 Plt Count 321 K/uL (130-400) 03/02/23 MPV 10.2 fL (9.4-12.4) 03/02/23 Neutrophils (%) (Auto) 78.6 % 03/02/23 Lymphocytes (%) (Auto) 12.3 % 03/02/23 Monocytes # (Auto) 2.00 K/uL (0.11-0.59) H 03/02/23 Eosinophils # (Auto) 0.01 K/uL (0.00-0.50) 03/02/23 Immature Granulocyte % (Auto) 0.8 % 03/02/23 Neutrophils # (Auto) 19.31 K/uL (1.40-6.50) H 03/02/23 Lymphocytes # (Auto) 3.02 K/uL (1.20-3.40) 03/02/23 Monocytes # (Auto) 2.00 K/uL (0.11-0.59) H 03/02/23 Eosinophils # (Auto) 0.01 K/uL (0.00-0.50) 03/02/23 Basophils # (Auto) 0.06 K/uL (0.00-0.20) 03/02/23 Immature Granulocyte # (Auto) 0.20 K/uL (0.01-0.20) 4 Na 133 mmol/L (136-145) L 03/02/23 K 5.0 mmol/L (3.5-5.1) 03/02/23 Cl 102 mmol/L (98-107) 03/02/23 CO2 20 mmol/L (21-32) L 03/02/23 Anion Gap 11 (3-11) 03/02/23 BUN 27 mg/dl (6-23) H 03/02/23 Creatinine 1.52 mg/dl (0.6-1.4) H 03/02/23 Estimated GFR ( Amer) 50.5 ml/min 03/02/23 Estimated GFR (Non-Af Amer) 43.6 ml/min 03/02/23 BUN/Creatinine Ratio 17.8 (10-20) 03/02/23 Glu 146 mg/dl (70-99(Fasting)) H 03/02/23 Ca 8.1 mg/dl (8.6-10.3) L 03/02/23 Phosphorus Level 5.1 mg/dl (2.5-4.9) H 03/02/23 Total Bilirubin 0.9 mg/dl (0.2-1.0) 03/02/23 Direct Bilirubin 0.2 mg/dl (0-0.2) 03/02/23 AST 88 U/L (13-39) H 03/02/23 ALT 32 U/L (7-52) 03/02/23 Alkaline Phosphatase 53 U/L (34-104) 03/02/23 TP 6.4 gm/dl (6.0-8.3) 03/02/23 Albumin 3.6 gm/dl (3.4-5.0) 03/02/23 Globulin 2.9 gm/dl (2.5-4.0) 03/01/23 Albumin/Globulin Ratio 1.3 (0.9-2) 03/01/23 Mg 1.6 mg/dl (1.7-2.4) L 03/02/23 04:16 Calcium Level 8.1 mg/dl (8.6-10.3) L 03/02/23 04:16 Arterial Blood pH 7.34 (7.35-7.45) L 03/02/23 04:16 Arterial Blood Partial Pressure CO2 40 mmHg (35-46) 03/02/23 04 :16 Arterial Blood Partial Pressure O2 123 mmHg (80-95) H 03/02/23 04:16 Arterial Blood HCO3 22 mmol/L (19-24) 03/02/23 04:16 Arterial Blood Base Excess -3.9 mEq/L (-9-1.8) 03/02/23 04:16 Arterial Blood Oxygen Saturation 99.0 % (90-95) H 03/02/23 04:1 6 Blood Gas Oxygen Given 50%FI02 03/02/23 04:16 Shaun Test Pos (Pos) 03/02/23 04:16 Microbiology 03/01/23 Unknown Gram Stain - Final Sputum,Vent Suction Diagnostic Findings (Past 24 Hours) Chest X-Ray 03/01/23 14:50 SINGLE VIEW CHEST CLINICAL HISTORY: Respiratory failure. Intubation. FINDINGS: An AP, portable, supine chest radiograph is obtained. No prior studies are available for comparison at the time of dictation. The examination is degraded by portable technique and patient rotation. An endotracheal tube has been placed. The tip projects approximately 1.5 cm above the noemi. The heart is enlarged. There is pulmonary vascular congestion. Bilateral airspace opacities are noted. No large pleural effusion or pneumothorax is seen. The skeletal structures are osteopenic. The bony thorax is grossly intact. IMPRESSION: 1. An endotracheal tube has been placed as above. 2. Cardiomegaly with pulmonary vascular congestion. 3. Bilateral airspace opacities could represent pulmonary edema and/or an infectious/inflammatory pneumonitis. Correlate clinically. Radiographic follow- up to resolution is recommended ACT 112: Negative or not required by law. Electronically signed by: Jefe Guerrero M.D. 03/01/2023 3:[address] 03/01/23 15:56 CT SCAN OF THE BRAIN WITHOUT IV CONTRAST CLINICAL HISTORY: Anoxia. COMPARISON STUDY: No priors. TECHNIQUE: Unenhanced axial CT scan of the brain is performed from the vertex to the skull base. A dose lowering technique was utilized adhering to the principles of ALARA. The examination is significantly degraded by the presence of residual IV contrast. CT DOSE: 625.8 mGy.cm FINDINGS: An endotracheal tube is noted on the forest aide tomogram. Brain parenchyma: There is age-related involutional change noting mild to moderate subcortical and periventricular microangiopathic disease. There is evidence of hemorrhage, mass effect, or acute territorial ischemia. Harrell-white matter differentiation is preserved. No extra-axial fluid collection is seen. Ventricles, sulci, cisterns: Prominent secondary to involutional change. Intracranial vasculature: There is atherosclerotic calcification of the cavernous carotid and vertebral arteries. Calvarium: Unremarkable. Sinuses and mastoids: There is trace mucosal thickening within the maxillary antra noting an air-fluid level in the right. There is moderate mucosal thickening within the ethmoid sinuses. Mild mucosal thickening is seen within the frontal and sphenoid sinuses. The mastoid air cells are well pneumatized. Orbits: The bony orbits are grossly intact. IMPRESSION: 1. There is no evidence of hemorrhage, mass effect, or acute territorial ischemia by CT criteria. 2. Pansinus disease as above. ACT 112: Negative or not required by law. Electronically signed by: Jefe Guerrero M.D. 03/01/2023 4:41 PM I & O Totals 24 Hours 03/01/23 03/02/23 03/03/23 06:59 06:59 06:59 Intake Total 3498.641 / 3498.641 100.065 / 100.065 Output Total 1300 / 1300 50 / 50 Balance 2198.641 / 2198.641 50.065 / 50.065 Cumulative 03/01/23 11:49 thru 03/02/23 07:57 Intake Total 3598.706 Output Total 1350 Balance 2248.706 RT Ventilator Mngmt (Last Documented) Ventilator Ordered Settings Ventilator Support Mode Assist Control 03/02/23 07:35 Respiratory Rate 17 03/02/23 07:35 Ventilator Tidal Volume 470 03/02/23 07:35 Setting Minute Ventilation 7.9 03/02/23 07:35 Positive End Expiratory 8 03/02/23 07:35 Pressure Fraction of Inspired Oxygen 50 03/02/23 07:35 Machine Comment decreased peep based off abg 03/02/23 05:30 Ventilator - PT Measurements Respiratory Rate 17 Exhaled Tidal Volume 350 Minute Ventilation 7.9 Peak Inspiratory Airway 21 Pressure Plateau Pressure 20 Respiratory Cycle Inspiratory: 1:3.2 Expiratory Ratio Inspiratory Phase Time 0.9 End-Tidal CO2 39 Static Lung Compliance 29.17 Dynamic Lung Compliance 26.92 Normal Static Lung Compliance 47.00 Patient Measurements Comment decreased i-time while he was dyssynchronous with the vent Coding Level of Care Code 89114 CRITICAL CARE 1ST 30-74M Diagnoses Cardiac arrest I46.9 Acidosis due to secondary diabetes E13.10 Acute hypoxemic respiratory failure J96.01 Myocardial infarction acute I21.9 Morbid obesity with BMI of 40.0-44.9, adult E66.01; Z68.41 Anoxic brain injury G93.1
[2023-03-02] MEDS: AMPICILLIN/SULBACTAM SOD 3,000 MG in SODIUM CHLOR 0.9% MINI-B 100 ML IV SCH ×3 (09:12→20:21)
[2023-03-02] MEDS: ATORVASTATIN 40 MG TAB PO SCH (09:14)
[2023-03-02] MEDS: CLOPIDOGREL BISULFATE 75 MG TAB PO SCH (09:14)
[2023-03-02] MEDS: ASPIRIN 325 MG ECTAB PO SCH ×2 (09:14→10:39)
--- NOTE | 2023-03-02 09:19 | Electrocardiogram Report ---
Test Reason : Blood Pressure : / mmHG Vent. Rate : 079 BPM Atrial Rate : 000 BPM P-R Int : 000 ms QRS Dur : 102 ms QT Int : 362 ms P-R-T Axes : 000 -51 112 degrees QTc Int : 415 ms Atrial fibrillation with premature ventricular or aberrantly conducted complexes Left axis deviation Inferior infarct , age undetermined Anterolateral infarct , age undetermined Abnormal ECG No previous ECGs available Confirmed by Benji Cook ([id number]) on 03/02/2023 9:19:20 AM Referred By: REFERRED SELF Confirmed By:Benji Cook
--- NOTE | 2023-03-02 09:20 | Electrocardiogram Report ---
Test Reason : Blood Pressure : / mmHG Vent. Rate : 073 BPM Atrial Rate : 241 BPM P-R Int : 000 ms QRS Dur : 090 ms QT Int : 412 ms P-R-T Axes : 000 -48 063 degrees QTc Int : 453 ms Atrial fibrillation Left axis deviation Inferior infarct , age undetermined Anterolateral infarct , age undetermined Abnormal ECG When compared with ECG of 01-MAR-2023 12:03, No significant change Confirmed by Benji Cook ([id number]) on 03/02/2023 9:20:05 AM Referred By: REFERRED SELF Confirmed By:Benji Cook
--- NOTE | 2023-03-02 09:22 | XRay Report ---
XR chest 1V portable HISTORY: Respiratory failure. COMPARISON: Chest 03/01/2023. FINDINGS: Endotracheal tube terminates 2.3 centers from the noemi. Nasogastric tube terminates in th e stomach. There are low lung volumes. The heart remains enlarged. Diffuse interstitial/vascular thic kening persists consistent with pulmonary edema. There are small bilateral pleural effusions. No pneu mothorax. Patchy densities within the lung bases may be due to the pulmonary edema. Possible catheter within the intrahepatic IVC. This is not well visualized on this study. IMPRESSION: 1. Satisfactory support line placement. 2. Pulmonary edema and small bilateral pleural effusions persist. ACT 112: Negative or not required by law. Electronically signed by: Bryant Medina M.D. 03/02/2023 9:21 AM
[2023-03-02] MEDS: INSULIN REGULAR 250 UNITS in SODIUM CHLORIDE 0.9% 247.5 ML IV SCH (10:19)
[2023-03-02] MEDS: ASPIRIN CHEW 324 MG PO SCH (10:38)
[2023-03-02] MEDS ORDERED: PANTOprazole 40 MG in SYRINGE 0 ML IV SCH (11:00)
[2023-03-02 11:43] LABS: BUN Creatinine Ratio 19.2 (10-20); Calcium 8.2 mg/dl (8.6-10.3); Est GFR (Non-African American) 45.7 ml/min; Potassium 4.4 mmol/L (3.5-5.1)
[2023-03-02] MEDS: HEPARIN SODIUM/DEXTROSE 25,000 UNITS/500 ML BAG IV SCH (12:26)
--- NOTE | 2023-03-02 13:03 | Cardiology Progress Note ---
Date of Service March 02, 2023 Assessment & Plan (1) Cardiac arrest: (2) Myocardial infarction acute: (3) Anoxic brain injury: Plan: -Echocardiogram performed postcardiac catheterization on 03/01/2023 revealed severe left ventricular hypokinesis, calculated LVEF 12%. -Patient developed hypotension prompting initiation of norepinephrine just after 1 AM on 03/02/2023, currently on 0.14 mcg/kg/min -Atrial fibrillation present, with ventricular rates in the range 110 to 120 bpm -At present, feels the rates are acceptable on current dose of norepinephrine to allow for blood pressure support -EEG with nonspecific diffuse low voltage -Plan for lightening up on sedation and ongoing assessment of the patient's neurologic status -Continue aspirin, clopidogrel, has completed 12-hour Integrilin infusion status post PCI, drug-eluting stents to the mid and apical LAD -Continue heparin for stroke prophylaxis given atrial fibrillation Admission and Anticipated Discharge Date Admission Date: March 01, 2023 Subjective Patient seen in intensive care unit, spouse at bedside. Physical Exam Physical Exam: Temp Pulse Resp BP Pulse Ox O2 Del Method FiO2 37.3 C 108 H 19 180/115 H 95 Mechanical Vent 40 03/02/23 12:00 03/02/23 12:00 03/02/23 12:00 03/01/23 12:40 03/02/23 12:00 03/02/23 08:00 03/02/23 12:00 Constitutional: + mechanically ventilated Respiratory: normal respiratory effort, lungs clear to auscultation Cardiovascular: RRR, no murmur, no edema Gastrointestinal (Abdomen): normal bowel sounds, soft, nontender, no hepatosplenomegaly Neurologic: Ongoing occasional tonic clonic movements.
[2023-03-02] MEDS: ACETAMINOPHEN 1,000 MG/100 ML VIAL IV PRN (13:26)
--- NOTE | 2023-03-02 14:20 | Hospitalist Progress Note ---
Date of Service March 02, 2023 Assessment & Plan (1) Myocardial infarction acute: (2) Cardiac arrest: (3) Anoxic brain injury: (4) Acute hypoxemic respiratory failure: (5) Acidosis due to secondary diabetes: (6) Hypercholesterolemia: (7) Diabetes mellitus: (8) Morbid obesity with BMI of 40.0-44.9, adult: Plan per Dr. Richardson's notes with addendum: This is a 77-year-old male with PMH of type 2 diabetes, dyslipidemia, vitamin B2 deficiency and other medical problems listed below who presents from home as a post cardiac arrest via EMS intubated in the field. Acute [place], s/p MORRO x 2 to LAD Cardiac arrest with ROSC achieved in field Atrial Fibrillation Possible anoxic brain injury Became unresponsive 2/2 shoveling snow earlier today called EMS and police arrived within 8 minutes of patient being down. AED revealed vtach and patient received defibrillation with STEMI on initial EKG once EMS arrived In the field, he required 2 doses of epi, 300mg IV amiodarone and additional shock once arrived in ED. EMS has had ROSC for 15 minutes prior to arrival in the ER Went to analytical laboratory technician upon arrival as a heart alert and 2 MORRO to LAD placed but significant multivessel disease noted Intermittent myoclonic jerks noted through catheterization procedure and in ICU - obtaining CT head No longer requiring pressors post-procedure Continue IV heparin drip Post-cath management per Dr. Coffey, critical care mgmt per Dr. Gomez Per chart review- extensive discussion took place between family and Dr. Gomez regarding goals of care - patient has some dementia with cognitive decline over the past few years and would feels he would not be interested in pursuing life- sustaining therapies if he were not able to achieve a quality of life similar to or better than he came into the hospital with - confirmed code status as a DNR/DNI 03/02 remains intubated, sedated, on pressors weaning of pressors, ventilator per [employer] Field Agent EEG: low voltage with diffuse slowing and burst suppression remains on Heparin drip Echo showed EF of 15% with multiple wall motion abnormalities on Aspirin, Plavix, Atorvastatin Cardiology service on board DM II Hold home agents Per ICU glycemic pharmacist for mgmt HLD On atorvastatin 40mg per home meds DVT Ppx: Heparin drip Code status: DNR/DNI PCP: [facility] Admission and Anticipated Discharge Date Admission Date: March 01, 2023 Subjective ff up for s/p cardiac arrest, acute [place] etc intubated, sedated not in distress occasionally grimaces as per RN still on Levophed no other issues per fitness/wellness director of Systems Review of Systems: all noted and negative except for above Physical Exam Physical Exam: General- not in distress, breathing with no effort or accessory muscle use Eyes- anicteric Neck- no JVD Lungs- clear BS BL Heart- normal rate, regular rhythm; no murmurs Abdomen- normal bowel sounds, nondistended, soft, no tenderness Extremities- no pretibial edema, no calf tenderness Neuro- sedated Skin- warm & dry Results & Data Results & Data Vital Signs (Past 12 Hours) Vital Signs Temp Pulse Resp Pulse Ox O2 Del Method FiO2 03/02/23 13:00 37.4 C 138 H 19 97 03/02/23 12:45 37.4 C 125 H 18 97 03/02/23 12:30 37.4 C 115 H 19 97 03/02/23 12:15 37.3 C 109 H 18 96 03/02/23 12:00 37.3 C 108 H 19 95 03/02/23 12:00 40 03/02/23 11:50 110 H 19 98 40 03/02/23 11:45 37.3 C 113 H 18 98 03/02/23 11:30 37.3 C 116 H 20 97 03/02/23 11:15 37.2 C 124 H 19 96 03/02/23 11:00 37.2 C 126 H 20 97 03/02/23 10:45 37.2 C 116 H 20 97 03/02/23 10:30 37.2 C 112 H 20 96 03/02/23 10:15 37.2 C 116 H 19 96 03/02/23 10:00 37.1 C 126 H 19 95 03/02/23 09:45 37.1 C 113 H 20 98 03/02/23 09:30 37.1 C 118 H 18 96 03/02/23 09:15 37.1 C 102 H 17 97 03/02/23 09:00 37.1 C 105 H 15 97 03/02/23 08:45 37.2 C 114 H 20 93 03/02/23 08:30 37.2 C 97 H 12 97 03/02/23 08:15 37.2 C 91 H 13 95 03/02/23 08:00 Mechanical Vent 50 03/02/23 08:00 116 H 03/02/23 08:00 Mechanical Vent 03/02/23 08:00 37.3 C 102 H 14 97 03/02/23 08:00 50 03/02/23 07:45 37.3 C 98 H 16 97 03/02/23 07:35 102 H 17 97 50 03/02/23 07:30 37.3 C 106 H 16 96 03/02/23 07:15 37.4 C 98 H 16 97 03/02/23 07:00 37.4 C 102 H 16 97 03/02/23 06:45 37.5 C 100 H 16 97 03/02/23 06:40 37.5 C 101 H 16 98 03/02/23 06:30 37.5 C 94 H 16 97 03/02/23 06:20 37.5 C 90 16 98 03/02/23 06:10 37.5 C 73 16 98 03/02/23 06:00 37.6 C H 75 16 98 03/02/23 05:50 37.6 C H 67 16 99 03/02/23 05:40 37.6 C H 75 16 99 03/02/23 05:30 37.6 C H 71 16 99 03/02/23 05:30 12 50 03/02/23 05:20 37.6 C H 71 16 99 03/02/23 05:10 37.6 C H 73 16 99 03/02/23 05:00 37.7 C H 73 16 99 03/02/23 04:50 37.7 C H 75 16 97 03/02/23 04:40 37.7 C H 72 16 97 03/02/23 04:30 37.7 C H 74 16 98 03/02/23 04:20 37.7 C H 68 13 98 03/02/23 04:10 37.7 C H 74 16 97 03/02/23 04:00 37.7 C H 72 16 97 03/02/23 04:00 50 03/02/23 03:50 37.7 C H 72 16 98 03/02/23 03:40 37.8 C H 71 16 97 03/02/23 03:30 37.8 C H 73 16 97 03/02/23 03:20 37.8 C H 72 16 97 03/02/23 03:20 72 19 98 50 03/02/23 03:10 37.8 C H 67 14 97 03/02/23 03:00 37.8 C H 68 16 97 03/02/23 02:50 37.8 C H 70 16 97 03/02/23 02:40 37.8 C H 71 16 97 03/02/23 02:30 37.8 C H 73 15 97 03/02/23 02:20 37.9 C H 72 14 97 all noted and reviewed including below
[2023-03-02 14:33] LABS: BUN Creatinine Ratio 18.8 (10-20); Creatinine Clr Calc Pharmacy 56.8 ml/min; Est GFR (African American) 51.7 ml/min; Est GFR (Non-African American) 44.6 ml/min; Potassium 5.5 mmol/L (3.5-5.1)
[2023-03-02] MEDS ORDERED: SODIUM BICARB 8.4% INJ 50 MEQ/50 ML SYR IV STA (15:24)
[2023-03-02] MEDS ORDERED: PATIROMER CALCIUM SORBITEX 8.4 GM PACK PO STA (15:24)
[2023-03-02] MEDS ORDERED: CALCIUM CHLORIDE 10% 1,000 MG in DEXTROSE 5% 50 ML IV ONE (15:45)
[2023-03-02] MEDS ORDERED: AMIODARONE / D5W 150 MG/100 ML BAG IV STA (20:36)
[2023-03-02] MEDS ORDERED: AMIODARONE IV BOLUS & DRIP IV STA (20:36)
[2023-03-02] MEDS ORDERED: 0.2 MICRON FILTER SET 1 EACH IV STA (20:36)
[2023-03-02] MEDS ORDERED: STAT IV Infusion **Titration per Protocol STA (20:36)
[2023-03-02] MEDS ORDERED: AMIODARONE / D5W 360 MG/200 ML BAG IV ONE (20:46)
[2023-03-02 21:37] LABS: BUN Creatinine Ratio 19.4 (10-20); Calcium 8.2 mg/dl (8.6-10.3); Creatinine Clr Calc Pharmacy 58.8 ml/min; Est GFR (African American) 53.9 ml/min; Est GFR (Non-African American) 46.5 ml/min; Potassium 4.4 mmol/L (3.5-5.1)
[2023-03-03] MEDS: propofoL 1,000 MG/100 ML VIAL IV SCH ×8 (01:17→20:26)
[2023-03-03] MEDS: AMIODARONE / D5W 360 MG/200 ML BAG IV SCH ×2 (02:19→13:25)
[2023-03-03] MEDS: Double Conc; 16mg in 500mL IV SCH ×2 (02:20→19:18)
[2023-03-03] MEDS: AMPICILLIN/SULBACTAM SOD 3,000 MG in SODIUM CHLOR 0.9% MINI-B 100 ML IV SCH ×4 (02:43→20:25)
[2023-03-03 03:58] LABS: Base Excess ABG -0.7 mEq/L (-9-1.8); HCO3 ABG 23 mmol/L (19-24); Oxygen Saturation ABG 96.3 % (90-95); PCO2 ABG 36 mmHg (35-46); PO2 ABG 71 mmHg (80-95); pH ABG 7.42 (7.35-7.45)
[2023-03-03 04:05] LABS: Basophils # (auto) 0.03 K/uL (0.00-0.20); Basophils % (auto) 0.2 %; Eosinophils # (auto) 0.13 K/uL (0.00-0.50); Eosinophils % (auto) 0.8 %; Hemoglobin 11.7 g/dl (14.0-18.0); Immature Granulocytes # (auto) 0.06 K/uL (0.01-0.20); Immature Granulocytes % (auto) 0.4 %; Lymphocytes # (auto) 2.55 K/uL (1.20-3.40); Lymphocytes % (auto) 15.4 %; Mean Corpuscular Hemoglobin 30.2 pg (25.0-34.0); Mean Corpuscular Hgb Conc 34.4 g/dL (32.0-36.0); Mean Corpuscular Volume 87.9 fL (80.0-100.0); Mean Platelet Volume 10.2 fL (9.4-12.4); Monocytes # (auto) 1.22 K/uL (0.11-0.59); Monocytes % (auto) 7.3 %; Neutrophils # (auto) 12.61 K/uL (1.40-6.50); Neutrophils % (auto) 75.9 %; Platelet Count 245 K/uL (130-400); RDW Coefficient of Variation 13.9 % (11.5-14.5); RDW Standard Deviation 44.1 fL (36.4-46.3); Red Blood Count 3.87 M/uL (4.70-6.10)
[2023-03-03 04:09] LABS: Allen Test Pos (Pos)
[2023-03-03 04:24] LABS: Albumin Level 3.1 gm/dl (3.4-5.0); BUN Creatinine Ratio 20.1 (10-20); Bilirubin Direct 0.4 mg/dl (0-0.2); Bilirubin,Total 1.2 mg/dl (0.2-1.0); Calcium 8.6 mg/dl (8.6-10.3); Creatinine Clr Calc Pharmacy 60.9 ml/min; Est GFR (African American) 56.3 ml/min; Est GFR (Non-African American) 48.5 ml/min; Magnesium 2.4 mg/dl (1.7-2.4); Phosphorus 4.7 mg/dl (2.5-4.9); Potassium 4.4 mmol/L (3.5-5.1); Total Protein 5.7 gm/dl (6.0-8.3)
[2023-03-03 04:36] LABS: ANTI-Xa, UFH(UnfractionatedHep 0.13 IU/ml (0.3-0.7)
[2023-03-03] MEDS ORDERED: HEPARIN SOD (PORCINE) 1000 UNIT/ML IV ONE (06:05)
--- NOTE | 2023-03-03 07:10 | XRay Report ---
XR chest 1V portable CLINICAL HISTORY: eval ETT placement COMPARISON STUDY: Chest radiograph March 02, 2023 at 8:49 AM. FINDINGS: Tip of endotracheal tube is 2.5 cm above. Tip of nasogastric tube is within the body of the stomach. There is no pneumothorax. Small bilateral pleural effusions and bibasilar opacities are sim ilar to prior exam. Cardiomegaly is again noted. There is persistent pulmonary edema. IMPRESSION: 1. Satisfactory positioning of the endotracheal and nasogastric tubes. 2. Persistent pulmonary edema with small bilateral pleural effusions and bibasilar opacities. No pneu mothorax. ACT 112: Negative or not required by law. Electronically signed by: Kumar Howard M.D. 03/03/2023 7:09 AM
[2023-03-03] MEDS: SODIUM CHLORIDE 0.9% 1,000 ML IV SCH ×2 (07:19→20:19)
[2023-03-03] MEDS: INSULIN ASPART PER UNIT CHARGE SC SCH ×4 (07:30→20:25)
[2023-03-03] MEDS: ASPIRIN CHEW 324 MG PO SCH (08:38)
[2023-03-03] MEDS: ATORVASTATIN 40 MG TAB PO SCH (08:38)
[2023-03-03] MEDS: CLOPIDOGREL BISULFATE 75 MG TAB PO SCH (08:39)
--- NOTE | 2023-03-03 11:07 | Critical Care Progress Note ---
Date of Service March 03, 2023 Assessment & Plan (1) Cardiac arrest: (2) Acidosis due to secondary diabetes: (3) Acute hypoxemic respiratory failure: (4) Myocardial infarction acute: (5) Morbid obesity with BMI of 40.0-44.9, adult: (6) Anoxic brain injury: Plan Impression: 77-year-old male with morbid obesity diabetes and potential neurocognitive decline admitted with out of hospital cardiac arrest. He underwent cardiac catheterization with stents to the LAD x 2 but has significant multivessel disease. He remains hypotensive and chest x-ray demonstrates cardiomegaly with diffuse pulmonary edema. He is already demonstrating signs of potential anoxic brain injury with myoclonic jerking and a unfavorable neurological exam. 24-hour events: Sedation was discontinued. The patient overbreathing the vent but does not withdraw to painful stimulus in upper or lower extremities. No purposeful movement. Recommendations: 1. Neurologic: EEG with low voltage with diffuse slowing and burst suppression. Patient continues to demonstrate poor neurological recovery with discontinuation of sedation. Will proceed with MRI of the brain and repeat his neurological exam tomorrow which will be 72 hours out. At that point in time can likely make some prognostic statements for neurological recovery with some degree of certainty. Family continues to be helpful but is aware of potential grim prognosis and would not want to pursue persistent vegetative state, tracheostomy, or PEG tube placement. If exam remains concerning tomorrow and depending on MRI of the brain findings, may consider terminal extubation. 2. Cardiovascular: Acute myocardial infarction with cardiac arrest. The patient has multivessel disease. Echo showed EF of 15% with multiple wall motion abnormalities. Continue management per cardiology. Currently on antiplatelet agents and heparin infusion. Patient demonstrated atrial fibrillation with rapid ventricular response and is now been loaded with amiodarone which appears to be successful in controlling heart rate. 3. Pulmonary: Severe hypoxemic respiratory failure. Continue ARDSnet ventilatory strategy. Oxygenation indices are improved today. 4. ID: Day #2 Unasyn for potential aspiration. Cultures negative to date. Continue antibiotics for now. Afebrile (cooling catheter maintaining temp) and white blood cell count decreasing 5. Endocrine: Continue insulin infusion for glycemic control. 6. GI: Holding enteral nutrition until we can reassess tomorrow. 7. Renal: At risk for acute kidney injury given hypoperfusion and contrast administration. Mild increase in serum creatinine today. Will need to trend the potassium as it is increased to 5. He is a poor candidate for renal replacement if he were to progress to acute renal failure 8. Heme-onc: Leukocytosis likely reactive but will continue to trend. Mild anemia. No indication for transfusion. Continue antiplatelet agents per cardiology. The patient's overall prognosis remains guarded from a neurological perspective. Exam was conducted with patient's in the room and she was updated. She expressed understanding and again reiterates that the patient would not want to pursue continued life-sustaining therapies if he were to be dependent on others for his activities of daily living. He definitely would not want tracheostomy or PEG tube and would likely be opposed to long-term long term. Patient remains critically ill with multiorgan system failure/dysfunction. A total of 42 minutes of critical care time was spent in evaluation management of this patient. Including discussion with bedside critical care nurse, respiratory therapy, and on multidisciplinary rounds Admission and Anticipated Discharge Date Admission Date: March 01, 2023 Subjective Patient is intubated and sedated Review of Systems Review of Systems: Unobtainable due to endotracheal tube Physical Exam Constitutional: + morbidly obese and + mechanically vent ilated Neck: trachea midline, no thyromegaly Respiratory: no labored breathing Auscultation: + crackles and + rhonchi Cardiovascular: RRR, no murmur, no edema Gastrointestinal (Abdomen): Inspection/Auscultation: abdomen normal to inspection and + hypoactive bowel sounds Musculoskeletal: Extremities: extremities normal to inspection Skin: no rashes, warm and dry Lymphatic: no cervical lymphadenopathy Results & Data Results & Data Vital Signs (Past 12 Hours) Vital Signs Temp Pulse Resp Pulse Ox O2 Del Method FiO2 03/03/23 10:00 36.7 C 94 H 16 95 03/03/23 09:45 36.7 C 82 18 94 03/03/23 09:30 36.7 C 105 H 23 92 03/03/23 09:15 36.7 C 114 H 23 89 L 03/03/23 09:00 36.7 C 115 H 29 H 88 L 03/03/23 08:45 36.7 C 120 H 30 H 90 03/03/23 08:30 36.7 C 121 H 24 89 L 03/03/23 08:15 36.7 C 120 H 23 88 L 03/03/23 08:00 36.7 C 115 H 23 94 03/03/23 08:00 Mechanical Vent 60 03/03/23 08:00 105 H 03/03/23 08:00 60 03/03/23 08:00 60 03/03/23 08:00 105 H 03/03/23 07:45 36.7 C 102 H 22 93 03/03/23 07:30 36.6 C 98 H 21 94 03/03/23 07:15 36.6 C 90 21 90 03/03/23 07:14 89 22 90 40 03/03/23 07:00 36.6 C 100 H 21 92 03/03/23 06:45 36.7 C 91 H 21 93 03/03/23 06:30 36.6 C 86 19 93 03/03/23 06:15 36.6 C 92 H 22 93 03/03/23 06:00 36.6 C 88 20 93 03/03/23 04:01 105 H 22 93 40 03/03/23 04:00 50 03/03/23 03:00 36.7 C 99 H 22 92 03/03/23 02:50 36.7 C 93 H 0 L 94 03/03/23 02:40 36.7 C 90 19 94 03/03/23 02:30 36.7 C 100 H 21 92 03/03/23 02:20 36.7 C 99 H 18 94 03/03/23 02:10 36.7 C 100 H 21 94 03/03/23 02:00 36.7 C 101 H 18 94 03/03/23 01:50 36.7 C 107 H 21 94 03/03/23 01:40 36.7 C 103 H 18 95 03/03/23 01:30 36.7 C 108 H 19 95 03/03/23 01:20 36.7 C 116 H 21 94 03/03/23 01:10 36.7 C 114 H 21 95 03/03/23 01:00 36.7 C 100 H 23 95 03/03/23 00:50 36.7 C 120 H 21 95 03/03/23 00:40 36.7 C 107 H 19 94 03/03/23 00:30 36.7 C 99 H 20 93 03/03/23 00:20 36.7 C 99 H 22 92 03/03/23 00:10 36.7 C 111 H 22 92 03/03/23 00:05 103 H 22 93 40 03/03/23 00:00 36.7 C 99 H 22 93 03/03/23 00:00 50 03/02/23 23:50 36.7 C 96 H 23 92 03/02/23 23:40 36.7 C 104 H 20 92 03/02/23 23:30 36.7 C 105 H 18 93 03/02/23 23:20 36.7 C 104 H 21 94 03/02/23 23:10 36.7 C 109 H 19 95 03/02/23 23:00 36.7 C 106 H 21 94 Critical Care Results & Data Vital Signs (Past 12 Hours) Vital Signs Temp Pulse Resp Pulse Ox O2 Del Method FiO2 03/03/23 10:00 36.7 C 94 H 16 95 03/03/23 09:45 36.7 C 82 18 94 03/03/23 09:30 36.7 C 105 H 23 92 03/03/23 09:15 36.7 C 114 H 23 89 L 03/03/23 09:00 36.7 C 115 H 29 H 88 L 03/03/23 08:45 36.7 C 120 H 30 H 90 03/03/23 08:30 36.7 C 121 H 24 89 L 03/03/23 08:15 36.7 C 120 H 23 88 L 03/03/23 08:00 36.7 C 115 H 23 94 03/03/23 08:00 Mechanical Vent 60 03/03/23 08:00 105 H 03/03/23 08:00 60 03/03/23 08:00 60 03/03/23 08:00 105 H 03/03/23 07:45 36.7 C 102 H 22 93 03/03/23 07:30 36.6 C 98 H 21 94 03/03/23 07:15 36.6 C 90 21 90 03/03/23 07:14 89 22 90 40 03/03/23 07:00 36.6 C 100 H 21 92 03/03/23 06:45 36.7 C 91 H 21 93 03/03/23 06:30 36.6 C 86 19 93 03/03/23 06:15 36.6 C 92 H 22 93 03/03/23 06:00 36.6 C 88 20 93 03/03/23 04:01 105 H 22 93 40 03/03/23 04:00 50 03/03/23 03:00 36.7 C 99 H 22 92 03/03/23 02:50 36.7 C 93 H 0 L 94 03/03/23 02:40 36.7 C 90 19 94 03/03/23 02:30 36.7 C 100 H 21 92 03/03/23 02:20 36.7 C 99 H 18 94 03/03/23 02:10 36.7 C 100 H 21 94 03/03/23 02:00 36.7 C 101 H 18 94 03/03/23 01:50 36.7 C 107 H 21 94 03/03/23 01:40 36.7 C 103 H 18 95 03/03/23 01:30 36.7 C 108 H 19 95 03/03/23 01:20 36.7 C 116 H 21 94 03/03/23 01:10 36.7 C 114 H 21 95 03/03/23 01:00 36.7 C 100 H 23 95 03/03/23 00:50 36.7 C 120 H 21 95 03/03/23 00:40 36.7 C 107 H 19 94 03/03/23 00:30 36.7 C 99 H 20 93 03/03/23 00:20 36.7 C 99 H 22 92 03/03/23 00:10 36.7 C 111 H 22 92 03/03/23 00:05 103 H 22 93 40 03/03/23 00:00 36.7 C 99 H 22 93 03/03/23 00:00 50 03/02/23 23:50 36.7 C 96 H 23 92 03/02/23 23:40 36.7 C 104 H 20 92 03/02/23 23:30 36.7 C 105 H 18 93 03/02/23 23:20 36.7 C 104 H 21 94 03/02/23 23:10 36.7 C 109 H 19 95 Lab & Micro Results (Past 24 Hours) RBC 3.87 M/uL (4.70-6.10) L 03/03/23 WBC 16.60 K/ul (4.8-10.8) H 03/03/23 Hgb 11.7 g/dl (14.0-18.0) L 03/03/23 Hct 34.0 % (42.0-52.0) L 03/03/23 MCV 87.9 fL (80.0-100.0) 03/03/23 MCH 30.2 pg (25.0-34.0) 03/03/23 MCHC 34.4 g/dL (32.0-36.0) 03/03/23 RDW Standard Deviation 44.1 fL (36.4-46.3) 03/03/23 RDW Coefficient of Variation 13.9 % (11.5-14.5) 03/03/23 Plt Count 245 K/uL (130-400) 03/03/23 MPV 10.2 fL (9.4-12.4) 03/03/23 Neutrophils (%) (Auto) 75.9 % 03/03/23 Lymphocytes (%) (Auto) 15.4 % 03/03/23 Monocytes # (Auto) 1.22 K/uL (0.11-0.59) H 03/03/23 Eosinophils # (Auto) 0.13 K/uL (0.00-0.50) 03/03/23 Immature Granulocyte % (Auto) 0.4 % 03/03/23 Neutrophils # (Auto) 12.61 K/uL (1.40-6.50) H 03/03/23 Lymphocytes # (Auto) 2.55 K/uL (1.20-3.40) 03/03/23 Monocytes # (Auto) 1.22 K/uL (0.11-0.59) H 03/03/23 Eosinophils # (Auto) 0.13 K/uL (0.00-0.50) 03/03/23 Basophils # (Auto) 0.03 K/uL (0.00-0.20) 03/03/23 Immature Granulocyte # (Auto) 0.06 K/uL (0.01-0.20) 4 Na 132 mmol/L (136-145) L 03/03/23 K 4.4 mmol/L (3.5-5.1) 03/03/23 Cl 102 mmol/L (98-107) 03/03/23 CO2 23 mmol/L (21-32) 03/03/23 Anion Gap 7 (3-11) 03/03/23 BUN 28 mg/dl (6-23) H 03/03/23 Creatinine 1.39 mg/dl (0.6-1.4) 03/03/23 Estimated GFR ( Amer) 56.3 ml/min 03/03/23 Estimated GFR (Non-Af Amer) 48.5 ml/min 03/03/23 BUN/Creatinine Ratio 20.1 (10-20) H 03/03/23 Glu 170 mg/dl (70-99(Fasting)) H 03/03/23 Ca 8.6 mg/dl (8.6-10.3) 03/03/23 Phosphorus Level 4.7 mg/dl (2.5-4.9) 03/03/23 Total Bilirubin 1.2 mg/dl (0.2-1.0) H 03/03/23 Direct Bilirubin 0.4 mg/dl (0-0.2) H 03/03/23 AST 70 U/L (13-39) H 03/03/23 ALT 29 U/L (7-52) 03/03/23 Alkaline Phosphatase 52 U/L (34-104) 03/03/23 TP 5.7 gm/dl (6.0-8.3) L 03/03/23 Albumin 3.1 gm/dl (3.4-5.0) L 03/03/23 Mg 2.4 mg/dl (1.7-2.4) 03/03/23 03:49 Calcium Level 8.6 mg/dl (8.6-10.3) 03/03/23 03:49 Arterial Blood pH 7.42 (7.35-7.45) 03/03/23 03:49 Arterial Blood Partial Pressure CO2 36 mmHg (35-46) 03/03/23 03 :49 Arterial Blood Partial Pressure O2 71 mmHg (80-95) L 03/03/23 0 3:49 Arterial Blood HCO3 23 mmol/L (19-24) 03/03/23 03:49 Arterial Blood Base Excess -0.7 mEq/L (-9-1.8) 03/03/23 03:49 Arterial Blood Oxygen Saturation 96.3 % (90-95) H 03/03/23 03:4 9 Blood Gas Oxygen Given 40% 03/03/23 03:49 Shaun Test Pos (Pos) 03/03/23 03:49 Microbiology 03/01/23 Unknown Gram Stain - Final Sputum,Vent Suction Diagnostic Findings (Past 24 Hours) Chest X-Ray 03/03/23 00:43 XR chest 1V portable CLINICAL HISTORY: eval ETT placement COMPARISON STUDY: Chest radiograph March 02, 2023 at 8:49 AM. FINDINGS: Tip of endotracheal tube is 2.5 cm above. Tip of nasogastric tube is within the body of the stomach. There is no pneumothorax. Small bilateral pleural effusions and bibasilar opacities are similar to prior exam. Cardiomegaly is again noted. There is persistent pulmonary edema. IMPRESSION: 1. Satisfactory positioning of the endotracheal and nasogastric tubes. 2. Persistent pulmonary edema with small bilateral pleural effusions and bibasilar opacities. No pneumothorax. ACT 112: Negative or not required by law. Electronically signed by: Kumar Howard M.D. 03/03/2023 7:09 AM I & O Totals 24 Hours 03/02/23 03/03/23 03/04/23 06:59 06:59 06:59 Intake Total 3498.641 / 3498.641 4261.081 / 4261.081 1135.182 / 1135.182 Output Total 1300 / 1300 3530 / 3530 350 / 350 Balance 2198.641 / 2198.641 731.081 / 731.081 785.182 / 785.182 Cumulative 03/01/23 11:49 thru 03/03/23 10:55 Intake Total 8894.904 Output Total 5180 Balance 3714.904 RT Ventilator Mngmt (Last Documented) Ventilator Ordered Settings Ventilator Support Mode Assist Control 03/03/23 08:00 Respiratory Rate 16 03/03/23 10:00 Ventilator Tidal Volume 470 03/03/23 08:00 Setting Minute Ventilation 10.3 03/03/23 07:14 Positive End Expiratory 8 03/03/23 08:00 Pressure Fraction of Inspired Oxygen 60 03/03/23 08:00 Peak Inspiratory Flow 31 03/03/23 07:14 Machine Comment FiO2 titrated to 40% at this time 03/02/23 11:50 per SpO2 98% Ventilator - PT Measurements Respiratory Rate 16 Exhaled Tidal Volume 470 Minute Ventilation 10.3 Peak Inspiratory Airway 32 Pressure Plateau Pressure 24.3 Respiratory Cycle Inspiratory: 1:2.1 Expiratory Ratio Inspiratory Phase Time 1.2 End-Tidal CO2 31 Static Lung Compliance 28.83 Dynamic Lung Compliance 19.58 Normal Static Lung Compliance 45.00 Patient Measurements Comment Decreased I-time due to vent desynchrony Coding Level of Care Code 02279 CRITICAL CARE 1ST 30-74M Diagnoses Cardiac arrest I46.9 Acidosis due to secondary diabetes E13.10 Acute hypoxemic respiratory failure J96.01 Myocardial infarction acute I21.9 Morbid obesity with BMI of 40.0-44.9, adult E66.01; Z68.41 Anoxic brain injury G93.1
--- NOTE | 2023-03-03 11:48 | Cardiology Progress Note ---
Date of Service March 03, 2023 Assessment & Plan (1) Cardiac arrest: (2) Myocardial infarction acute: (3) Atrial fibrillation: (4) Anoxic brain injury: Plan: -Echocardiogram performed postcardiac catheterization on 03/01/2023 revealed severe left ventricular hypokinesis, calculated LVEF 12%. 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 -Continue aspirin, clopidogrel, heparin, norepinephrine, amiodarone for rate control in the setting of hypotension. -Neurologic prognosis continues to appear to be poor. Admission and Anticipated Discharge Date Admission Date: March 01, 2023 Subjective Patient seen in cardiology follow-up. Remains on the ventilator, propofol reinitiated, without evidence of patient being improved neurologic status on a holiday from sedation yesterday. Atrial fibrillation continues, with rates higher last night prompting the addition of an amiodarone infusion for rate control. Remains on norepinephrine, titrated down to 0.08 g/kg/min today. Physical Exam Constitutional: + mechanically ventilated Respiratory: normal respiratory effort, lungs clear to auscultation Cardiovascular: RRR, no murmur, no edema Gastrointestinal (Abdomen): normal bowel sounds, soft, nontender, no hepatosplenomegaly Genitourinary: Catheter present draining clear yellow urine Results & Data Vital Signs (Past 12 Hours) Vital Signs Temp Pulse Resp Pulse Ox O2 Del Method FiO2 03/03/23 10:45 36.6 C 89 19 94 03/03/23 10:30 36.7 C 87 20 94 03/03/23 10:15 36.7 C 92 H 20 93 03/03/23 10:00 36.7 C 94 H 16 95 03/03/23 09:45 36.7 C 82 18 94 03/03/23 09:30 36.7 C 105 H 23 92 03/03/23 09:15 36.7 C 114 H 23 89 L 03/03/23 09:00 36.7 C 115 H 29 H 88 L 03/03/23 08:45 36.7 C 120 H 30 H 90 03/03/23 08:30 36.7 C 121 H 24 89 L 03/03/23 08:15 36.7 C 120 H 23 88 L 03/03/23 08:00 36.7 C 115 H 23 94 03/03/23 08:00 Mechanical Vent 60 03/03/23 08:00 105 H 03/03/23 08:00 60 03/03/23 08:00 60 03/03/23 08:00 105 H 03/03/23 07:45 36.7 C 102 H 22 93 03/03/23 07:30 36.6 C 98 H 21 94 03/03/23 07:15 36.6 C 90 21 90 03/03/23 07:14 89 22 90 40 03/03/23 07:00 36.6 C 100 H 21 92 03/03/23 06:45 36.7 C 91 H 21 93 03/03/23 06:30 36.6 C 86 19 93 03/03/23 06:15 36.6 C 92 H 22 93 03/03/23 06:00 36.6 C 88 20 93 03/03/23 04:01 105 H 22 93 40 03/03/23 04:00 50 03/03/23 03:00 36.7 C 99 H 22 92 03/03/23 02:50 36.7 C 93 H 0 L 94 03/03/23 02:40 36.7 C 90 19 94 03/03/23 02:30 36.7 C 100 H 21 92 03/03/23 02:20 36.7 C 99 H 18 94 03/03/23 02:10 36.7 C 100 H 21 94 03/03/23 02:00 36.7 C 101 H 18 94 03/03/23 01:50 36.7 C 107 H 21 94 03/03/23 01:40 36.7 C 103 H 18 95 03/03/23 01:30 36.7 C 108 H 19 95 03/03/23 01:20 36.7 C 116 H 21 94 03/03/23 01:10 36.7 C 114 H 21 95 03/03/23 01:00 36.7 C 100 H 23 95 03/03/23 00:50 36.7 C 120 H 21 95 03/03/23 00:40 36.7 C 107 H 19 94 03/03/23 00:30 36.7 C 99 H 20 93 03/03/23 00:20 36.7 C 99 H 22 92 03/03/23 00:10 36.7 C 111 H 22 92 03/03/23 00:05 103 H 22 93 40 03/03/23 00:00 36.7 C 99 H 22 93 03/03/23 00:00 50 03/02/23 23:50 36.7 C 96 H 23 92 Diagnostic Findings Cardiac Enzymes 03/02/23 03/03/23 Range/Units 11:09 03:49 AST 70 H (13-39) U/L Troponin I High Sens 66981.7 H* D (0-20) pg/ml CBC 03/03/23 Range/Units 03:49 WBC 16.60 H (4.8-10.8) K/ul RBC 3.87 L (4.70-6.10) M/uL Hgb 11.7 L (14.0-18.0) g/dl Hct 34.0 L (42.0-52.0) % Plt Count 245 (130-400) K/uL Neut # (Auto) 12.61 H (1.40-6.50) K/uL Lymph # (Auto) 2.55 (1.20-3.40) K/uL Harney # (Auto) 1.22 H (0.11-0.59) K/uL Eos # (Auto) 0.13 (0.00-0.50) K/uL Baso # (Auto) 0.03 (0.00-0.20) K/uL Comprehensive Metabolic Panel 03/02/23 03/02/23 03/03/23 Range/Units 14:00 21:09 03:49 Sodium 132 L 134 L 132 L (136-145) mmol/L Potassium 5.5 H D 4.4 4.4 (3.5-5.1) mmol/L Chloride 100 103 102 (98-107) mmol/L Carbon Dioxide 24 23 23 (21-32) mmol/L BUN 28 H 28 H 28 H (6-23) mg/dl Creatinine 1.49 H 1.44 H 1.39 (0.6-1.4) mg/dl Glucose 163 H 184 H 170 H (70-99(Fasting)) mg/dl Calcium 8.0 L 8.2 L 8.6 (8.6-10.3) mg/dl Direct Bilirubin 0.4 H (0-0.2) mg/dl AST 70 H (13-39) U/L ALT 29 (7-52) U/L Alkaline Phosphatase 52 (34-104) U/L Total Protein 5.7 L (6.0-8.3) gm/dl Albumin 3.1 L (3.4-5.0) gm/dl
[2023-03-03] MEDS: HEPARIN SODIUM/DEXTROSE 25,000 UNITS/500 ML BAG IV SCH ×2 (13:28→19:18)
--- NOTE | 2023-03-03 15:14 | Magnetic Resonance Report ---
MRI OF THE BRAIN WITHOUT IV CONTRAST CLINICAL HISTORY: Anoxic brain injury COMPARISON STUDY: CT of the brain dated 03/01/2023. TECHNIQUE: MRI of the brain was performed utilizing various T1 and T2-weighted sequences in the axial , sagittal, and coronal planes. IV contrast was not administered for this examination. FINDINGS: Brain parenchyma: There is subtle diffusely increased diffusion seen throughout the high parietal cor hussain as well as the posterior parieto-occipital cortex bilaterally. This is corroborated on the ADC ma ps. There may also be subtle increased restricted diffusion within the thalami. There is correspondin g edema suggested involving the posterior axial T2-weighted images. There is no corresponding FLAIR s ignal abnormality. There is no evidence of territorial ischemia. There is age-related involutional ch nathan noting mild subcortical and periventricular microangiopathic disease. There is no hemorrhage or midline shift. No extra-axial fluid collection is seen. The cerebellar tonsils are normal in configur ation. Mineralization is noted in the basal ganglia. Ventricles, sulci, and cisterns: Prominent secondary to involutional change. Pituitary and sella: Unremarkable. Intracranial vasculature: Normal flow voids are maintained at the skull base. Orbits: The bony orbits are grossly intact. Orbital contents are normal in appearance. Sinuses and mastoids: There is moderate mucosal thickening within the ethmoid, frontal, and sphenoid sinuses. There is mild mucosal thickening and fluid within the maxillary antra. There are small masto id effusions. Calvarium: Unremarkable. Cervical cord: Partially visualized cervical spinal cord is normal in morphology and signal intensity . IMPRESSION: 1. There is subtle diffusely increased diffusion signal within the parieto-occipital cortex bilateral ly. There may also be mildly restricted diffusion within the thalami. 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 2. There is no hemorrhage or midline shift. 3. Pansinus disease as above. ACT 112: Negative or not required by law. Electronically signed by: Jefe Guerrero M.D. 03/03/2023 3:12 PM
[2023-03-03] MEDS ORDERED: CHECK SCOPOLAMINE PATCH PLACEMENT SCH (16:00)
[2023-03-03 16:03] LABS: ANTI-Xa, UFH(UnfractionatedHep < 0.10 IU/ml (0.3-0.7)
[2023-03-03] MEDS ORDERED: HEPARIN IV BOLUS 4,500 UNITS in SYRINGE 0 ML IV ONE (16:15)
--- NOTE | 2023-03-03 16:50 | Hospitalist Progress Note ---
Date of Service March 03, 2023 Assessment & Plan (1) Myocardial infarction acute: (2) Cardiac arrest: (3) Anoxic brain injury: (4) Acute hypoxemic respiratory failure: (5) Acidosis due to secondary diabetes: (6) Hypercholesterolemia: (7) Diabetes mellitus: (8) Morbid obesity with BMI of 40.0-44.9, adult: Plan per Dr. Richardson's notes with addendum: This is a 77-year-old male with PMH of type 2 diabetes, dyslipidemia, vitamin B2 deficiency and other medical problems listed below who presents from home as a post cardiac arrest via EMS intubated in the field. Acute IL, s/p MORRO x 2 to LAD Cardiac arrest with ROSC achieved in field Atrial Fibrillation Possible anoxic brain injury Became unresponsive 2/2 shoveling snow earlier today called EMS and police arrived within 8 minutes of patient being down. AED revealed vtach and patient received defibrillation with STEMI on initial EKG once EMS arrived In the field, he required 2 doses of epi, 300mg IV amiodarone and additional shock once arrived in ED. EMS has had ROSC for 15 minutes prior to arrival in the ER Went to lab associate upon arrival as a heart alert and 2 MORRO to LAD placed but significant multivessel disease noted Intermittent myoclonic jerks noted through catheterization procedure and in ICU - obtaining CT head No longer requiring pressors post-procedure Continue IV heparin drip Post-cath management per Dr. Coffey, critical care mgmt per Dr. Gomez Per chart review- extensive discussion took place between family and Dr. Gomez regarding goals of care - patient has some dementia with cognitive decline over the past few years and would feels he would not be interested in pursuing life- sustaining therapies if he were not able to achieve a quality of life similar to or better than he came into the hospital with - confirmed code status as a DNR/DNI 03/03 remains intubated, sedated, on pressors weaning of pressors, ventilator per Drug Clerk EEG: low voltage with diffuse slowing and burst suppression Brain MRI: pending Neuro eval tomorrow remains on Heparin drip Echo showed EF of 15% with multiple wall motion abnormalities on Aspirin, Plavix, Atorvastatin Cardiology service on board DM II Hold home agents Per ICU glycemic pharmacist for mgmt HLD On atorvastatin 40mg per home meds DVT Ppx: Heparin drip Code status: DNR/DNI PCP: Aly Admission and Anticipated Discharge Date Admission Date: March 01, 2023 Subjective ff up for acute IL, etc remains intubated, sedated Propofol off for 1 hour earlier today, patient would occasionally grimace, no purposeful movement per RN underwent Brain MRI today no other new issues Review of Systems Review of Systems: all noted and negative except for above Physical Exam Physical Exam: General-not in distress, breathing with no effort or accessory muscle use Eyes- anicteric Neck- no JVD Lungs- mild rhonchi BL Heart- normal rate, regular rhythm; no murmurs Abdomen- normal bowel sounds, nondistended, soft Extremities- no pretibial edema, no calf tenderness Neuro- sedated Skin- warm & dry Results & Data Results & Data Vital Signs (Past 12 Hours) Vital Signs Temp Pulse Resp BP Pulse Ox O2 Del Method FiO2 03/03/23 16:15 37.3 C 98 H 20 96 03/03/23 16:01 37.3 C 99 H 20 95 03/03/23 16:01 79/64 L 03/03/23 16:00 37.3 C 103 H 19 96 03/03/23 16:00 60 03/03/23 16:00 98 H 03/03/23 15:55 93/64 L 03/03/23 15:55 37.3 C 97 H 19 98 03/03/23 15:45 37.3 C 93 H 24 03/03/23 15:40 99 H 18 90 60 03/03/23 15:30 37.2 C 94 H 0 L 89 L 03/03/23 15:23 118/81 03/03/23 15:23 37.2 C 102 H 20 03/03/23 15:15 37.2 C 104 H 23 03/03/23 15:00 108 H 27 H 03/03/23 14:58 112 H 28 H 03/03/23 13:50 82 19 96 03/03/23 13:40 36.7 C 85 18 96 03/03/23 13:30 36.6 C 81 16 96 03/03/23 13:20 36.7 C 84 21 96 03/03/23 13:15 36.7 C 85 16 96 03/03/23 13:00 36.7 C 80 16 96 03/03/23 12:45 36.7 C 85 21 96 03/03/23 12:30 36.6 C 87 19 96 03/03/23 12:15 36.7 C 84 19 97 03/03/23 12:00 36.7 C 74 19 96 03/03/23 12:00 60 03/03/23 12:00 80 03/03/23 11:45 36.7 C 74 15 96 03/03/23 11:30 36.7 C 101 H 19 97 03/03/23 11:18 80 19 97 60 03/03/23 11:15 36.7 C 90 20 95 03/03/23 11:00 36.6 C 94 H 19 95 03/03/23 10:45 36.6 C 89 19 94 03/03/23 10:30 36.7 C 87 20 94 03/03/23 10:15 36.7 C 92 H 20 93 03/03/23 10:00 36.7 C 94 H 16 95 03/03/23 09:45 36.7 C 82 18 94 03/03/23 09:30 36.7 C 105 H 23 92 03/03/23 09:15 36.7 C 114 H 23 89 L 03/03/23 09:00 36.7 C 115 H 29 H 88 L 03/03/23 08:45 36.7 C 120 H 30 H 90 03/03/23 08:30 36.7 C 121 H 24 89 L 03/03/23 08:15 36.7 C 120 H 23 88 L 03/03/23 08:00 36.7 C 115 H 23 94 03/03/23 08:00 Mechanical Vent 60 03/03/23 08:00 105 H 03/03/23 08:00 60 03/03/23 08:00 60 03/03/23 08:00 105 H 03/03/23 07:45 36.7 C 102 H 22 93 03/03/23 07:30 36.6 C 98 H 21 94 03/03/23 07:15 36.6 C 90 21 90 03/03/23 07:14 89 22 90 40 03/03/23 07:00 36.6 C 100 H 21 92 03/03/23 06:45 36.7 C 91 H 21 93 03/03/23 06:30 36.6 C 86 19 93 03/03/23 06:15 36.6 C 92 H 22 93 03/03/23 06:00 36.6 C 88 20 93 all noted and reviewed including below
[2023-03-03] MEDS ORDERED: STAT IV Infusion **Titration per Protocol STA (18:39)
[2023-03-03] MEDS ORDERED: LORazepam 0.5 MG in SYRINGE 0.25 ML IV PRN (18:39)
[2023-03-03] MEDS ORDERED: MoRPHine SULFATE 2 MG/ML CARP IV PRN (18:39)
[2023-03-03] MEDS ORDERED: LORazepam 0.5 MG TAB PO PRN (18:39)
[2023-03-03] MEDS ORDERED: ONDANSETRON INJ 2 MG/ML 2 ML VIAL IV PRN (18:39)
[2023-03-03] MEDS ORDERED: ONDANSETRON 4 MG OD TAB SL PRN (18:39)
[2023-03-03] MEDS ORDERED: MoRPHine BOLUS from BAG IV PRN (18:39)
[2023-03-03] MEDS: INSULIN REGULAR 250 UNITS in SODIUM CHLORIDE 0.9% 247.5 ML IV SCH (18:41)
[2023-03-03] MEDS ORDERED: MoRPHine SULFATE 4 MG/ML 1 ML CARP\\VIAL IV STA (19:00)
[2023-03-03] MEDS ORDERED: MoRPHine SULF/NSS 100 MG/100 ML BAG IV SCH (19:00)
[2023-03-03] MEDS ORDERED: SCOPOLAMINE 1 MG TDSY TD ONE (19:29)
[2023-03-03] MEDS ORDERED: LORazepam 1 MG in SYRINGE 0.25 ML IV PRN (19:31)
--- NOTE | 2023-03-04 00:27 | Death Pronouncement Note ---
Date of Service March 04, 2023 Pronouncement Note Admission Date March 01, 2023 Date and Time of Date of : 03/04/23 Time of : 00:19 Preliminary Cause of (1) Acute coronary syndrome: (2) Anoxic brain injury: (3) Myocardial infarction acute: (4) Acute hypoxemic respiratory failure: (5) Cardiac arrest: Additional Data Confirmation of : no pulse, no respirations, no heart sounds and pupils fixed and dilated Pronouncement Performed By: Advanced Practice Provider (DAVID) Family: at bedside Attending physician: Jarred Gomez MD Was code activated?: No lease examiner notified?: Yes
--- NOTE | 2023-03-04 00:31 | Discharge Summary ---
Date of Service March 04, 2023 Admission HPI Per Admitting Provider This is a 77-year-old male with PMH of type 2 diabetes, dyslipidemia, vitamin B2 deficiency and other medical problems listed below who presents from home as a post cardiac arrest via EMS intubated in the field. Was reportedly shoveling snow for 10 minutes prior to coming in from outside and slumping over and becoming unresponsive. called EMS and police arrived within 8 minutes of patient being down. AED revealed vtach and patient received defibrillation with STEMI on initial EKG once EMS arrived. In the field, he required 2 doses of epi, 300mg IV amiodarone and additional shock once arrived in ED. EMS has had ROSC for 15 minutes prior to arrival in the ER. Went to field laboratory operator upon arrival as a heart alert and received 2 MORRO to LAD but significant multivessel disease noted. Evaluated in ICU following cardiac catheterization and is intubated with intermittent myoclonic jerks noted. ROS unobtainable due to reduced consciousness. Per discussion in the room, Dr. Gomez spoke extensively with who states patient has some dementia with cognitive decline over the past few years. Okay with current plan for CT head to look for potential anoxic brain injury but per their discussion, is not not interested in pursuing life- sustaining therapies if he were not able to achieve a quality of life similar to or better than he came into the hospital with. Specialty Data Specialty Data 03/01/2023: Admitted after out of hospital cardiac arrest, signs of anoxic brain injury, received MORRO x2 to culprit lesion LAD 03/02/2023: EEG, ARDS due to pulmonary edema, TTE showing LVEF 10-15% 03/03/2023: Patient transitioned to comfort measures in the evening 03/04/2023: Patient terminally extubated and passed peacefully at [id number] Discharge Data Consultations 03/01/23 12:51 Consult Oyster Worker Stat ED Decision to Admit Stat 03/01/23 14:22 Consult Oyster Worker Routine 03/01/23 17:36 Consult Cardiology Routine Procedures Performed Operation Date: 03/01/23 12:30 Actual Procedures p Cineradiography w/Routine Exam - Sebastian Coffey MD, PhD p Drug Eluting Stent SGl Vessel - Sebastian Coffey MD, PhD p Cath, Coronaries ONLY (no LV) - Sebastian Coffey MD, PhD s Ultrasound Vascular Access - Sebastian Coffey MD, PhD s Central Venous Cath Placement - Sebastian Coffey MD, PhD
== END 2023-03-04 02:00 | disposition expired | DRG 321 ==
LOC: ED 12:00 → CC 12:47 → SUATTDRO 14:21 → 1E 14:21
PROC: CLB.CCO (2023-03-01 12:30)